=== PATIENT | female | born 1970 | race Caucasian/White ===

== ENCOUNTER 2018-01-28 21:40 | Inpatient (IN) | payer OTHER ==
[2018-01-28] MEDS ORDERED: MORPHINE SULFATE 4 MG/ML SYRINGE IV STA (22:22)
[2018-01-28] MEDS ORDERED: diphenhydrAMINE 50 MG/ML 1 ML VIAL IVP STA (22:22)
[2018-01-28] MEDS ORDERED: ONDANSETRON 4 MG/2 ML VIAL IVP STA (22:22)
[2018-01-28] MEDS ORDERED: SODIUM CHLORIDE 0.9% 2,000 ML IV STA (22:22)
[2018-01-28] MEDS ORDERED: FAMOTIDINE 20 MG/2 ML VIAL IV STA (22:23)
--- NOTE | 2018-01-28 22:26 | ED ---
Abdominal Pain HPI - General Chief Complaint: Abdominal Pain Stated Complaint: abdominal pain Time Seen by Provider: 01/28/18 22:01 Source: patient Mode of arrival: ambulatory Limitations: no limitations - History of Present Illness Initial Comments: Patient is a 48-year-old female presented for abdominal pain. She states that she thinks she has a history of hiatal hernias that this morning, she started having epigastric abdominal pain of physical spasm is been fairly constant. She then started vomiting at 7 AM and has vomited unknown number of times. She also states that she felt like something got stuck in her throat but is not sure if that really happened or not. She is currently here with her sisters and they state that they had some wine last night but not a significant amount of alcohol. - Related Data Home Medications Medication Instructions Recorded Confirmed No Known Home Medications 12/19/15 12/19/15 Allergies Allergy/AdvReac Type Severity Reaction Status Date / Time No Known Allergies Allergy Verified 01/28/18 21:46 Review of Systems ROS Statement: Those systems with pertinent positive or pertinent negative responses have been documented in the HPI. Constitutional: Negative for chills, fatigue and fever. HENT: Negative for congestion. Respiratory: Negative for chest tightness, shortness of breath and wheezing. Negative for cough Cardiovascular: Negative for chest pain and palpitations. Gastrointestinal: Positive for abdominal pain. Negative for abdominal distention , diarrhea, positive for nausea and vomiting. Genitourinary: Negative for dysuria. Musculoskeletal: Negative for back pain, neck pain and neck stiffness. Skin: Negative for color change. Neurological: Negative for dizziness, speech difficulty, weakness and light- headedness. Psychiatric/Behavioral: Negative for agitation and confusion. Negative for anxiety ROS Other: All systems not noted in ROS Statement are negative. Past Medical History Past Medical History: No Reported History History of Any Multi-Drug Resistant Organisms: None Reported Past Surgical History: No Surgical Hx Reported Past Psychological History: Anxiety Smoking Status: Current every day smoker Past Alcohol Use History: Occasional Past Drug Use History: None Reported General Exam - General Exam Comments Initial Comments: Constitutional: Pt is oriented to person, place, and time. Pt appears well- developed and well-nourished. No distress. HENT: Head: Normocephalic and atraumatic. Eyes: EOM are normal. Neck: Normal range of motion. Neck supple. Cardiovascular: Normal rate, regular rhythm, S1 normal, S2 normal and normal heart sounds. Exam reveals no gallop and no friction rub. No murmur heard. Pulmonary/Chest: Effort normal and breath sounds normal. No tachypnea and no bradypnea. No respiratory distress. No wheezes or rales noted. Abdominal: Soft. Bowel sounds are normal. Pt exhibits no shifting dullness, no distension, no pulsatile liver, no fluid wave, no abdominal bruit and no ascites. There is tenderness to the epigastric region. There is no rigidity, no rebound, no guarding, no tenderness at McBurney's point and negative Napier' s sign. Musculoskeletal: Normal range of motion. Neurological: Pt is alert and oriented to person, place, and time. No cranial nerve deficit. Skin: Skin is warm and dry. No rash noted. Pt is not diaphoretic. No erythema. No pallor. Psychiatric: Pt has a normal mood and affect. Pt behavior is normal. Thought content normal. Limitations: no limitations Course Vital Signs 01/28/18 01/28/18 21:43 23:26 Temperature 97.5 F L Pulse Rate 49 L Respiratory 28 H 18 Rate Blood Pressure 145/86 O2 Sat by Pulse 98 Oximetry Medical Decision Making - Medical Decision Making Laboratory studies show that there was leukocytosis 15.3 and other laboratory studies showed that there is transaminitis with AST measured at 571 and ALT 403. Lipase was also measured to be greater than 20,000 and there is no evidence of urinary tract infection in the urinalysis. Because of the severity of the pancreatitis with no preceding events, CT of the abdomen was performed and showed left-sided retroperitoneal fluid consistent with acute pancreatitis and calcified gallstones with no dilated ducts. Because of that, stat ultrasound was not ordered. Patient was also made nothing by mouth and started on continue IV hydration..Explained all labs and diagnostic test results and that we will admit patient to hospital. Pt is agreeable to plan and case has been discussed with Dr. Blood and they agree to accept the pt. - Lab Data Result diagrams: 01/28/18 22:01 01/28/18 22:01 Lab Results 01/28/18 01/28/18 01/28/18 Range/Units 22:01 22:01 23:35 WBC 15.3 H (3.8-10.6) k/uL RBC 4.79 (3.80-5.40) m/uL Hgb 15.1 (11.4-16.0) gm/dL Hct 46.7 H (34.0-46.0) % MCV 97.6 (80.0-100.0) fL MCH 31.6 (25.0-35.0) pg MCHC 32.3 (31.0-37.0) g/dL RDW 12.8 (11.5-15.5) % Plt Count 255 (150-450) k/uL Neutrophils % 83 % Lymphocytes % 12 % Monocytes % 4 % Eosinophils % 1 % Basophils % 0 % Neutrophils # 12.6 H (1.3-7.7) k/uL Lymphocytes # 1.8 (1.0-4.8) k/uL Monocytes # 0.7 (0-1.0) k/uL Eosinophils # 0.1 (0-0.7) k/uL Basophils # 0.0 (0-0.2) k/uL Sodium 138 (137-145) mmol/L Potassium 4.1 (3.5-5.1) mmol/L Chloride 107 (98-107) mmol/L Carbon Dioxide 23 (22-30) mmol/L Anion Gap 8 mmol/L BUN 13 (7-17) mg/dL Creatinine 0.60 (0.52-1.04) mg/dL Est GFR (CKD-EPI)AfAm >90 (>60 ml/min/1.73 sqM) Est GFR (CKD-EPI)NonAf >90 (>60 ml/min/1.73 sqM) Glucose 149 H (74-99) mg/dL Calcium 9.0 (8.4-10.2) mg/dL Magnesium 2.1 (1.6-2.3) mg/dL Total Bilirubin 1.2 (0.2-1.3) mg/dL AST 571 H (14-36) U/L ALT 403 H (9-52) U/L Alkaline Phosphatase 94 (38-126) U/L Total Protein 6.5 (6.3-8.2) g/dL Albumin 3.9 (3.5-5.0) g/dL Lipase >65941 H (23-300) U/L Urine Color Urine Appearance (Clear) Urine pH (5.0-8.0) Ur Specific Peterson (1.001-1.035) Urine Protein (Negative) Urine Glucose (UA) (Negative) Urine Ketones (Negative) Urine Blood (Negative) Urine Nitrite (Negative) Urine Bilirubin (Negative) Urine Urobilinogen (<2.0) mg/dL Ur Leukocyte Esterase (Negative) Urine RBC (0-5) /hpf Urine WBC (0-5) /hpf Ur Squamous Epith Cells (0-4) /hpf Urine Mucus (None) /hpf Urine HCG, Qual Not Detected (Not Detectd) 01/28/18 Range/Units 23:35 WBC (3.8-10.6) k/uL RBC (3.80-5.40) m/uL Hgb (11.4-16.0) gm/dL Hct (34.0-46.0) % MCV (80.0-100.0) fL MCH (25.0-35.0) pg MCHC (31.0-37.0) g/dL RDW (11.5-15.5) % Plt Count (150-450) k/uL Neutrophils % % Lymphocytes % % Monocytes % % Eosinophils % % Basophils % % Neutrophils # (1.3-7.7) k/uL Lymphocytes # (1.0-4.8) k/uL Monocytes # (0-1.0) k/uL Eosinophils # (0-0.7) k/uL Basophils # (0-0.2) k/uL Sodium (137-145) mmol/L Potassium (3.5-5.1) mmol/L Chloride (98-107) mmol/L Carbon Dioxide (22-30) mmol/L Anion Gap mmol/L BUN (7-17) mg/dL Creatinine (0.52-1.04) mg/dL Est GFR (CKD-EPI)AfAm (>60 ml/min/1.73 sqM) Est GFR (CKD-EPI)NonAf (>60 ml/min/1.73 sqM) Glucose (74-99) mg/dL Calcium (8.4-10.2) mg/dL Magnesium (1.6-2.3) mg/dL Total Bilirubin (0.2-1.3) mg/dL AST (14-36) U/L ALT (9-52) U/L Alkaline Phosphatase (38-126) U/L Total Protein (6.3-8.2) g/dL Albumin (3.5-5.0) g/dL Lipase (23-300) U/L Urine Color Yellow Urine Appearance Cloudy H (Clear) Urine pH 5.5 (5.0-8.0) Ur Specific Peterson 1.015 (1.001-1.035) Urine Protein Trace H (Negative) Urine Glucose (UA) Negative (Negative) Urine Ketones Trace H (Negative) Urine Blood Negative (Negative) Urine Nitrite Negative (Negative) Urine Bilirubin Negative (Negative) Urine Urobilinogen <2.0 (<2.0) mg/dL Ur Leukocyte Esterase Small H (Negative) Urine RBC 1 (0-5) /hpf Urine WBC 7 H (0-5) /hpf Ur Squamous Epith Cells 18 H (0-4) /hpf Urine Mucus Rare H (None) /hpf Urine HCG, Qual (Not Detectd) Disposition Clinical Impression: Pancreatitis, Transaminitis Disposition: ADMITTED IP TO THIS [facility] Condition: Fair Referrals: Sharon Martin MD [Primary Care Provider] - 1-2 days Decision to Admit Reason: Admit from EC Decision Date: 01/29/18 Decision Time: 00:42
[2018-01-28 22:37] LABS: Basophils % (A) 0 %; Eosinophils # (A) 0.1 k/uL (0-0.7); Eosinophils % (A) 1 %; HCT 46.7 % (34.0-46.0); HGB 15.1 gm/dL (11.4-16.0); Lymphocytes # (A) 1.8 k/uL (1.0-4.8); Lymphocytes % (A) 12 %; MCH 31.6 pg (25.0-35.0); MCHC 32.3 g/dL (31.0-37.0); MCV 97.6 fL (80.0-100.0); Mean Platelet Volume 7.9; Monocytes # (A) 0.7 k/uL (0-1.0); Monocytes % (A) 4 %; Neutrophils # (A) 12.6 k/uL (1.3-7.7); Neutrophils % (A) 83 %; Platelet Count 255 k/uL (150-450); RBC 4.79 m/uL (3.80-5.40); RDW 12.8 % (11.5-15.5); WBC 15.3 k/uL (3.8-10.6)
[2018-01-28 22:42] LABS: ALT 403 U/L (9-52); AST 571 U/L (14-36); Albumin 3.9 g/dL (3.5-5.0); Alkaline Phosphatase 94 U/L (38-126); Anion Gap 8 mmol/L; Blood Urea Nitrogen 13 mg/dL (7-17); Carbon Dioxide 23 mmol/L (22-30); Chloride 107 mmol/L (98-107); Glucose 149 mg/dL (74-99); Magnesium 2.1 mg/dL (1.6-2.3); Potassium 4.1 mmol/L (3.5-5.1); Sodium 138 mmol/L (137-145); Total Bilirubin 1.2 mg/dL (0.2-1.3); Total Protein 6.5 g/dL (6.3-8.2)
[2018-01-28 23:18] LABS: Lipase >20000 U/L (23-300)
[2018-01-28] MEDS ORDERED: MORPHINE SULFATE 4 MG/ML SYRINGE IVP STA (23:31)
--- NOTE | 2018-01-28 23:33 | XR ---
EXAMINATION TYPE: XR KUB DATE OF EXAM: 01/28/2018 COMPARISON: NONE HISTORY: Vomiting TECHNIQUE: 2 views supine FINDINGS: There is no sign of intestinal obstruction or pneumoperitoneum. Fecal pattern is normal. Th ere are no pathologic calcifications. Bony structures appear intact. IMPRESSION: Nonacute abdomen.
[2018-01-28 23:46] LABS: Appearance,Urine Cloudy (Clear); Bilirubin,Urine Negative (Negative); Blood,Urine Negative (Negative); Color,Urine Yellow; Glucose,Urine (UA) Negative (Negative); Ketones,Urine Trace (Negative); Leukocyte Esterase,Urine Small (Negative); Mucus,Urine Rare /hpf; Nitrite,Urine Negative (Negative); PH, Urine 5.5 (5.0-8.0); Protein,Urine Trace (Negative); RBC,Urine 1 /hpf (0-5); Specific Gravity,Urine 1.015 (1.001-1.035); Squamous Epithelial Cell,Urine 18 /hpf (0-4); Urobilinogen,Urine <2.0 mg/dL (<2.0); WBC,Urine 7 /hpf (0-5)
--- NOTE | 2018-01-29 00:04 | CT ---
EXAMINATION TYPE: CT abdomen pelvis w con DATE OF EXAM: 01/28/2018 COMPARISON: None HISTORY: No prior, vomiting, gen abd pain CT DLP: 1159 mGycm Automated exposure control for dose reduction was used. TECHNIQUE: Helical acquisition of images was performed from the lung bases through the pelvis. CONTRAST: Performed without Oral Contrast and with IV Contrast, patient injected with 100 mL of Isovue 300. FINDINGS: Lung bases are clear of consolidation. There is no pleural effusion. Liver spleen appear normal. Ther e is fluid in the anterior pararenal space on the left side and retroperitoneum around the pancreas. There are small calcified gallstones. The bile ducts are not dilated. I see no discrete pancreatic ma ss. There is no adrenal mass. Kidneys show satisfactory contrast opacification. There is no hydronephrosi s. There is lobulated enlarged uterus consistent with multiple fibroids. Bladder distends smoothly. I see no bony destructive process. There is no compression fracture. There is no ascites. There is no evidence of pneumoperitoneum. There are a few proximal small bowel loops with mild wall thickening.. There are no dilated loops. Appendix is not seen. There is no sign of appendicitis. IMPRESSION: LEFT-SIDED RETROPERITONEAL FLUID CONSISTENT WITH ACUTE PANCREATITIS. CALCIFIED GALLSTONES. NO DILATED DUCTS. Mild proximal small bowel wall thickening suggestive of localized enteritis.
[2018-01-29] MEDS ORDERED: ONDANSETRON 4 MG/2 ML VIAL IVP PRN (00:42)
[2018-01-29] MEDS ORDERED: NALOXONE 0.4 MG/ML 1 ML VIAL IV PRN (00:42)
[2018-01-29] MEDS: SODIUM CHLORIDE 0.9% 1,000 ML IV SCH ×4 (00:48→19:55)
[2018-01-29 01:38] VITALS: BMI 30.7
[2018-01-29] MEDS: MORPHINE SULFATE 4 MG/ML SYRINGE IV PRN ×3 (03:48→12:13)
--- NOTE | 2018-01-29 10:55 | P.HPIM ---
History of Present Illness H&P Date: 01/29/18 Chief Complaint: Pancreatitis This is a 48-year-old female patient of Dr. Martin. Patient presents to the emergency room with complaints of epigastric pain. Patient does states she's been having intermittent epigastric pain for the past 2 years last night was more severe than she has had in the past. Patient states on Monday night she did indulge in multiple mixed alcoholic beverages. Patient also states she has been consuming more greasy foods over the past few days. Does state she has history of stomach ulcers, anxiety and nicotine dependence. With increased epigastric pain patient did experience nausea and vomiting. KUB completed showing a nonacute abdomen. CT of abdomen and pelvis completed showing left- sided retroperitoneal fluid consistent with acute pancreatitis. Class for gallstones. No dilated ducts. Mild proximal small small bowel wall thickening suggestive the localalized enteritis. WBC elevated at 15.3. AST 571, ALT 403 and lipase greater than 20,000. GI services have been consulted. Patient made nothing by mouth. IV fluids initiated. Patient has been receiving morphine for pain control. At this time patient states that morphine has been able to control her pain. Patient does denies nausea or vomiting. Denies any diarrhea. Denies chest pain or shortness of breath. Denies any urinary burning or frequency. Review of Systems Please refer to HPI otherwise unremarkable Past Medical History Past Medical History: No Reported History Additional Past Medical History / Comment(s): stomach ulcers History of Any Multi-Drug Resistant Organisms: None Reported Past Surgical History: Tonsillectomy Past Psychological History: Anxiety Smoking Status: Current every day smoker Past Alcohol Use History: Occasional Past Drug Use History: None Reported Additional Drug Use History / Comment(s): pt smokes half to 1 ppd, drinks socially per pt - Past Family History Mother Family Medical History: No Reported History Medications and Allergies Home Medications Medication Instructions Recorded Confirmed Type No Known Home Medications 12/19/15 12/19/15 History Allergies Allergy/AdvReac Type Severity Reaction Status Date / Time No Known Allergies Allergy Verified 01/28/18 21:46 Physical Exam Vitals: Vital Signs Temp Pulse Pulse Resp BP BP Pulse Ox 01/29/18 09:20 155/75 01/29/18 07:40 98.4 F 69 19 155/93 95 01/29/18 01:21 98.0 F 55 L 16 154/75 96 01/29/18 00:51 55 L 16 189/78 98 01/28/18 23:26 18 01/28/18 21:43 97.5 F L 49 L 28 H 145/86 98 Intake and Output 01/28/18 01/29/18 01/29/18 22:59 06:59 14:59 Other: Weight 83.915 kg 88.8 kg Results CBC & Chem 7: 01/28/18 22:01 01/28/18 22:01 Labs: Abnormal Lab Results - Last 24 Hours (Table) 01/28/18 01/28/18 01/28/18 Range/Units 22:01 22:01 23:35 WBC 15.3 H (3.8-10.6) k/uL Hct 46.7 H (34.0-46.0) % Neutrophils # 12.6 H (1.3-7.7) k/uL Glucose 149 H (74-99) mg/dL AST 571 H (14-36) U/L ALT 403 H (9-52) U/L Lipase >82125 H (23-300) U/L Urine Appearance Cloudy H (Clear) Urine Protein Trace H (Negative) Urine Ketones Trace H (Negative) Ur Leukocyte Esterase Small H (Negative) Urine WBC 7 H (0-5) /hpf Ur Squamous Epith Cells 18 H (0-4) /hpf Urine Mucus Rare H (None) /hpf Thrombosis Risk Factor Assmnt - Choose All That Apply Each Factor Represents 1 point: Age 41-60 years Other Risk Factors: No Other congenital or acquired thrombophilia - If yes, enter type in comment: No Thrombosis Risk Factor Assessment Total Risk Factor Score: 1 Thrombosis Risk Factor Assessment Level: Low Risk Assessment and Plan Assessment: 1. Acute pancreatitis. CT of abdomen and pelvis completed showing left-sided retroperitoneal fluid consistent with acute pancreatitis. Ascites also. No dilated ducts and mild proximal small bowel wall thickening suggestive localized enteritis. GI services have been consulted. WBC 15.3, AST-1, ALT 403 and lipase greater than 20,000. Patient currently nothing by mouth IV fluids initiated at 200 per hour. Morphine for pain control. 2. History of stomach ulcers 3. Nicotine dependence. Patient educated greater than 3 minutes on smoking cessation. Patient declined nicotine patch at this time 4. Anxiety DVT prophylaxis Lovenox. GI prophylaxis Protonix Will repeat labs in a.m. Time with Patient: Greater than 30 (Greater than 60% of the total time spent in counseling and coordination of care. I performed an examination of the patient and discussed their management with the Nurse Practitioner. I have reviewed the Nurse Practitioner's notes and agree with the documented findings and plan of care)
--- NOTE | 2018-01-29 12:55 | CONS ---
CONSULTATION REQUESTING PHYSICIAN: Dr. Garcia REASON FOR CONSULTATION: Acute pancreatitis. HISTORY OF PRESENT ILLNESS: The patient is a 48-year-old pleasant white female who presented to the emergency room with acute onset of severe epigastric pain that started this morning. The pain was progressively getting worse and continued all day associated with multiple episodes of nausea, vomiting. She came into the emergency room and was noted to have elevated amylase and lipase consistent with acute pancreatitis. She had been having intermittent episodes of epigastric pain and was diagnosed with GERD and has been on acid reflux therapy that she takes as needed. She had a CT of the abdomen and pelvis done in the emergency room that showed changes in the pancreas consistent with acute pancreatitis. Scattered gallstones noted. No evidence of dilated duct. The patient also states that she consumes alcohol 2-3 times a week, moderate amount of drinker, 3-4 drinks each time for the last 2 years. No known history of pancreatitis in the past. PAST MEDICAL HISTORY: Significant for gastroesophageal reflux disease diagnosed about 2 years ago. PAST SURGICAL HISTORY: Tonsillectomy. SOCIAL HISTORY: Chronic daily smoker. Alcohol use as mentioned above. FAMILY HISTORY: Mother healthy. Father also healthy. MEDICATIONS: At home medications: None. ALLERGIES: NONE. REVIEW OF SYSTEMS: CARDIOPULMONARY: No chest pain or shortness of breath. GENITOURINARY: No dysuria or hematuria. MUSCULOSKELETAL: Unremarkable. SKIN: Unremarkable. ENDOCRINE: Unremarkable. PSYCHIATRY: Unremarkable. NEUROLOGY: Unremarkable. ENT/VISION: Unremarkable. CONSTITUTIONAL: No recent weight loss. No fever, chills, night sweats. PHYSICAL EXAMINATION: Blood pressure 189/78, pulse rate 75, temperature 98. HEENT examination unremarkable. Conjunctivae pink. Sclerae anicteric. Oral cavity, no lesions. NECK: No JVD or lymph node enlargement. Chest was clear to auscultation. HEART: Regular rate and rhythm. Abdomen is soft. Mild tenderness in the epigastric area. Bowel sounds are positive. No organomegaly. EXTREMITIES: No pedal edema. SKIN: No rashes. NEUROLOGIC: Alert and oriented x3. No focal deficits. LAB DATA: WBC 15.3, hemoglobin 15.1, platelets are normal. Basic metabolic panel is within normal limits. Lipase is more than 20,000. AST 571, ALT 403, alkaline phosphatase and T-bili are within normal limits. IMPRESSION: This is a lady who presents to the hospital with acute onset of severe epigastric pain associated with nausea and vomiting that started yesterday morning and continued to progressively get worse all day. Came to the emergency room last night, noted to have elevated LFTs with ALT and AST in the range of 500 and lipase more than 20,000 all consistent with acute biliary pancreatitis. She did have a CT of the abdomen done that showed evidence of multiple calcified gallstones but no biliary ductal dilation and changes consistent with acute pancreatitis. The patient does have history of moderate amount of drinking, but I doubt we are dealing with alcoholic related pancreatitis. RECOMMENDATIONS: 1. Symptomatic and supportive care. 2. Antiemetics as needed. 3. Surgical consultation for possible gallbladder surgery during this hospitalization. 4. Her serum transaminases are slightly elevated, which raises the possibility of choledocholithiasis. However, we will repeat labs in the morning and if they get worse we will consider further evaluation with possible MRCP to rule out CBD stone. 5. Recommended to abstain from alcohol. Thank you for this consultation. We will follow with you closely during the hospital stay. JT / PRABHU: [id number] /
--- NOTE | 2018-01-29 17:30 | P.GSCN ---
History of Present Illness Consult date: 01/29/18 History of present illness: CHIEF COMPLAINT: Abdominal pain HISTORY OF PRESENT ILLNESS: The patient is a 48-year-old female who reported having substernal epigastric abdominal pain following a food binge of fatty greasy foods and drinking alcohol over the holidays, in the last 2 days. She reports a strong family history of gallbladder disease where her mother also had her gallbladder removed. Patient reports having similar episode in the past one year ago and for the last 3 years after similar behavior of eating fatty foods. She's had previous ultrasounds of the gallbladder which she says was negative for gallstones. She presented with a lipase of over 20,000. CT of the abdomen and pelvis demonstrated gallstones. Gen. surgery is consulted regarding gallstone-induced pancreatitis. PAST MEDICAL HISTORY: See list. PAST SURGICAL HISTORY: See list. MEDICATIONS: See list. ALLERGIES: See list. SOCIAL HISTORY: No illicit drug use FAMILY HISTORY: No reports of Crohn's disease or inflammatory bowel disease. Family history of gallbladder disorder. REVIEW OF ORGAN SYSTEMS: CONSTITUTIONAL: No fevers or chills HEENT: No troubles with vision or hearing. No reports of dysphagia. ENDOCRINE: No reports of thyroid disorders. No diabetes. CARDIOVASCULAR: No heart attack. No chest pain. RESPIRATORY: No shortness of breath or pneumonia. GASTROINTESTINAL: No reports of recent blood in stools. Has intolerance to fatty greasy foods. NEURO: No reports of stroke or seizure disorders. PSYCH: No depression or suicidal ideation. Has anxiety. HEMATOLOGIC: No easy bruising or bleeding LYMPHATIC: The patient denies any lumps and bumps around the neck. GENITOURINARY: Denies any blood in urine or increased urinary frequency. MUSCULOSKELETAL: Denies back pain, stiffness or joint arthritis. SKIN: No skin cancer or rash per PHYSICAL EXAM: VITAL SIGNS: Currently stable. GENERAL: Well-developed in no acute distress. HEENT: No sclera icterus. Extraocular movements grossly intact. Moist buccal mucosa. Head is atraumatic, normocephalic. Hears conversational speech. No nasal drainage. NECK: Supple without lymphadenopathy. CHEST: Non-labored respirations and equal bilateral excursions. CARDIOVASCULAR: Regular rate with regular rhythm. Palpable 2+ radial pulses. ABDOMEN: Soft. Tender along the epigastrium. No peritonitis. MUSCULOSKELETAL: No clubbing, cyanosis or edema. NEUROLOGIC: No focal or lateralizing signs. Cranial nerves II through XII grossly intact. PSYCH: Appropriate affect. Alert and oriented to person, place and time. SKIN: Well perfused. Good skin turgor. LABS: Reviewed ASSESSMENT: 1. Gallstone-induced pancreatitis PLAN: 1. Inpatient cholecystectomy as described however once pancreatitis has improved. 2. May start liquid diet tomorrow as pancreatitis and abdominal pain improves. In the interim nothing by mouth except ice chips. 3. Likely hospitalization described at least 3-4 days including for inpatient cholecystectomy. Thank you for this kind consultation. Past Medical History Past Medical History: No Reported History Additional Past Medical History / Comment(s): stomach ulcers History of Any Multi-Drug Resistant Organisms: None Reported Past Surgical History: Tonsillectomy Past Psychological History: Anxiety Smoking Status: Current every day smoker Past Alcohol Use History: Occasional Past Drug Use History: None Reported Additional Drug Use History / Comment(s): pt smokes half to 1 ppd, drinks socially per pt - Past Family History Mother Family Medical History: No Reported History Medications and Allergies Home Medications Medication Instructions Recorded Confirmed Type No Known Home Medications 12/19/15 01/29/18 History Allergies Allergy/AdvReac Type Severity Reaction Status Date / Time No Known Allergies Allergy Verified 01/29/18 11:39 Surgical - Exam Vital Signs Temp Pulse Resp BP Pulse Ox 97.5 F L 49 L 28 H 145/86 98 01/28/18 21:43 01/28/18 21:43 01/28/18 21:43 01/28/18 21:43 01/28/18 21:43 Results - Labs 01/28/18 22:01 01/28/18 22:01 Abnormal Lab Results - Last 24 Hours (Table) 01/28/18 01/28/18 01/28/18 Range/Units 22:01 22:01 23:35 WBC 15.3 H (3.8-10.6) k/uL Hct 46.7 H (34.0-46.0) % Neutrophils # 12.6 H (1.3-7.7) k/uL Glucose 149 H (74-99) mg/dL AST 571 H (14-36) U/L ALT 403 H (9-52) U/L Lipase >12033 H (23-300) U/L Urine Appearance Cloudy H (Clear) Urine Protein Trace H (Negative) Urine Ketones Trace H (Negative) Ur Leukocyte Esterase Small H (Negative) Urine WBC 7 H (0-5) /hpf Ur Squamous Epith Cells 18 H (0-4) /hpf Urine Mucus Rare H (None) /hpf Diabetes panel 01/28/18 Range/Units 22:01 Sodium 138 (137-145) mmol/L Potassium 4.1 (3.5-5.1) mmol/L Chloride 107 (98-107) mmol/L Carbon Dioxide 23 (22-30) mmol/L BUN 13 (7-17) mg/dL Creatinine 0.60 (0.52-1.04) mg/dL Glucose 149 H (74-99) mg/dL Calcium 9.0 (8.4-10.2) mg/dL AST 571 H (14-36) U/L ALT 403 H (9-52) U/L Alkaline Phosphatase 94 (38-126) U/L Total Protein 6.5 (6.3-8.2) g/dL Albumin 3.9 (3.5-5.0) g/dL Calcium panel 01/28/18 Range/Units 22:01 Calcium 9.0 (8.4-10.2) mg/dL Albumin 3.9 (3.5-5.0) g/dL Pituitary panel 01/28/18 Range/Units 22:01 Sodium 138 (137-145) mmol/L Potassium 4.1 (3.5-5.1) mmol/L Chloride 107 (98-107) mmol/L Carbon Dioxide 23 (22-30) mmol/L BUN 13 (7-17) mg/dL Creatinine 0.60 (0.52-1.04) mg/dL Glucose 149 H (74-99) mg/dL Calcium 9.0 (8.4-10.2) mg/dL Adrenal panel 01/28/18 Range/Units 22:01 Sodium 138 (137-145) mmol/L Potassium 4.1 (3.5-5.1) mmol/L Chloride 107 (98-107) mmol/L Carbon Dioxide 23 (22-30) mmol/L BUN 13 (7-17) mg/dL Creatinine 0.60 (0.52-1.04) mg/dL Glucose 149 H (74-99) mg/dL Calcium 9.0 (8.4-10.2) mg/dL Total Bilirubin 1.2 (0.2-1.3) mg/dL AST 571 H (14-36) U/L ALT 403 H (9-52) U/L Alkaline Phosphatase 94 (38-126) U/L Total Protein 6.5 (6.3-8.2) g/dL Albumin 3.9 (3.5-5.0) g/dL - Imaging CT scan - abdomen: report reviewed, image reviewed CT scan - pelvis: report reviewed, image reviewed (Findings demonstrate gallstones.) Assessment and Plan (1) Acute gallstone pancreatitis Current Visit: Yes Status: Acute Code(s): K85.10 - BILIARY ACUTE PANCREATITIS WITHOUT NECROSIS OR INFECTION SNOMED Code(s): 339750668 (2) Obesity (BMI 30.0-34.9) Current Visit: Yes Status: Acute Code(s): E66.9 - OBESITY, UNSPECIFIED SNOMED Code(s): 007461436 (3) Tobacco abuse Current Visit: Yes Status: Acute Code(s): Z72.0 - TOBACCO USE SNOMED Code( s): 327199970 (4) Pancreatitis Current Visit: Yes Status: Acute Code(s): K85.90 - ACUTE PANCREATITIS WITHOUT NECROSIS OR INFECTION, UNSP SNOMED Code(s): 14679223 (5) Transaminitis Current Visit: Yes Status: Acute Code(s): R74.0 - NONSPEC ELEV OF LEVELS OF TRANSAMNS & LACTIC ACID DEHYDRGNSE SNOMED Code(s): 820849020 (6) Anxiety Current Visit: No Status: Acute Code(s): F41.9 - ANXIETY DISORDER, UNSPECIFIED SNOMED Code(s): 56347352
[2018-01-30] MEDS: SODIUM CHLORIDE 0.9% 1,000 ML IV SCH ×4 (00:25→16:15)
[2018-01-30] MEDS ORDERED: PANTOPRAZOLE 40 MG TABLET PO SCH (07:30)
[2018-01-30] MEDS: ENOXAPARIN 40 MG/0.4 ML SYRINGE SQ SCH ×2 (08:23→08:27)
[2018-01-30] MEDS: PANTOPRAZOLE 40 MG/10 ML VIAL IVP SCH ×2 (08:23→08:25)
[2018-01-30 08:36] LABS: Basophils % (A) 0 %; Eosinophils # (A) 0.1 k/uL (0-0.7); Eosinophils % (A) 1 %; HCT 41.1 % (34.0-46.0); HGB 13.1 gm/dL (11.4-16.0); Lymphocytes # (A) 1.5 k/uL (1.0-4.8); Lymphocytes % (A) 18 %; MCH 31.4 pg (25.0-35.0); MCHC 31.8 g/dL (31.0-37.0); MCV 98.8 fL (80.0-100.0); Mean Platelet Volume 7.5; Monocytes # (A) 0.4 k/uL (0-1.0); Monocytes % (A) 4 %; Neutrophils # (A) 6.5 k/uL (1.3-7.7); Neutrophils % (A) 76 %; Platelet Count 182 k/uL (150-450); RBC 4.16 m/uL (3.80-5.40); RDW 12.7 % (11.5-15.5); WBC 8.6 k/uL (3.8-10.6)
[2018-01-30 08:37] LABS: ALT 186 U/L (9-52); AST 53 U/L (14-36); Alkaline Phosphatase 60 U/L (38-126); Amylase 104 U/L (30-110); Anion Gap 6 mmol/L; Blood Urea Nitrogen 4 mg/dL (7-17); Calcium 7.5 mg/dL (8.4-10.2); Carbon Dioxide 22 mmol/L (22-30); Chloride 109 mmol/L (98-107); Glucose 88 mg/dL (74-99); Lipase 579 U/L (23-300); Potassium 3.7 mmol/L (3.5-5.1); Sodium 137 mmol/L (137-145); Total Bilirubin 0.6 mg/dL (0.2-1.3); Total Protein 5.4 g/dL (6.3-8.2)
--- NOTE | 2018-01-30 11:52 | P.PN ---
Subjective Progress Note Date: 01/30/18 Principal diagnosis: pancreatitis 48-year-old female admitted with acute pancreatitis abdominal pain. Pancreatic and liver enzymes improved today lipase 579. Amylase 104. AST 53. ALT 186. Alkaline phosphatase total bilirubin normal. Denies abdominal pain. Requesting diet advancement. Tentative surgery cholecystectomy scheduled tomorrow. Afebrile. White count 8.6. Objective - Vital Signs Vital signs: Vital Signs Temp 97.9 F 01/30/18 07:00 Pulse 70 01/30/18 07:00 Resp 18 01/30/18 07:00 BP 139/83 01/30/18 07:00 Pulse Ox 97 01/30/18 07:00 Intake & Output 01/29/18 01/30/18 01/30/18 18:59 06:59 18:59 Output Total 400 2300 Balance -400 -2300 Output: Urine 400 2300 Other: # Voids 1 1 - Exam General appearance: The patient is alert, oriented, in no acute distress. HET: Head is normocephalic and atraumatic. Pupils are equal and reactive. Oropharynx is clear without lesions. Neck: Supple without lymphadenopathy. Trachea midline. Heart: S1 S2. Regular rate and rhythm. Lungs: No crackles or wheezes are heard. Abdomen: Soft, nontender, nondistended with bowel sounds. No peritoneal signs. No palpable organomegaly or masses. Extremities: Normal skin color and turgor. No cyanosis, rash, ulceration, clubbing, or edema. Radial and pedal pulses are 2/4 bilaterally. Neurological: No focal deficits. Strength and sensation are grossly intact. - Labs CBC & Chem 7: 01/30/18 08:08 01/30/18 08:08 Labs: Abnormal Lab Results - Last 24 Hours (Table) 01/30/18 Range/Units 08:08 Chloride 109 H (98-107) mmol/L BUN 4 L (7-17) mg/dL Calcium 7.5 L (8.4-10.2) mg/dL AST 53 H (14-36) U/L ALT 186 H (9-52) U/L Total Protein 5.4 L (6.3-8.2) g/dL Albumin 3.0 L (3.5-5.0) g/dL Lipase 579 H (23-300) U/L Assessment and Plan (1) Acute gallstone pancreatitis Narrative/Plan: Transaminases improving choledocholithiasis felt to be less likely. Current Visit: Yes Status: Acute Code(s): K85.10 - BILIARY ACUTE PANCREATITIS WITHOUT NECROSIS OR INFECTION SNOMED Code(s): 151441691 (2) ETOH abuse Current Visit: Yes Status: Acute Code(s): F10.10 - ALCOHOL ABUSE, UNCOMPLICATED SNOMED Code(s): 98752392 Plan: 1. Clear liquids. Nothing by mouth after midnight. Nicotine patch offered. No further workup from a GI standpoint. Alcohol tobacco abstinence reinstated. We'll defer to general surgery for further recommendations. Will follow as needed. Assessment and plan of care discussed with Dr. Kaplan
--- NOTE | 2018-01-30 12:35 | P.PN ---
Subjective Progress Note Date: 01/30/18 This is a 48-year-old female patient of Dr. Martin. Patient presents to the emergency room with complaints of epigastric pain. Patient does states she's been having intermittent epigastric pain for the past 2 years last night was more severe than she has had in the past. Patient states on Monday night she did indulge in multiple mixed alcoholic beverages. Patient also states she has been consuming more greasy foods over the past few days. Does state she has history of stomach ulcers, anxiety and nicotine dependence. With increased epigastric pain patient did experience nausea and vomiting. KUB completed showing a nonacute abdomen. CT of abdomen and pelvis completed showing left- sided retroperitoneal fluid consistent with acute pancreatitis. Class for gallstones. No dilated ducts. Mild proximal small small bowel wall thickening suggestive the localalized enteritis. WBC elevated at 15.3. AST 571, ALT 403 and lipase greater than 20,000. GI services have been consulted. Patient made nothing by mouth. IV fluids initiated. Patient has been receiving morphine for pain control. At this time patient states that morphine has been able to control her pain. Patient does denies nausea or vomiting. Denies any diarrhea. Denies chest pain or shortness of breath. Denies any urinary burning or frequency. On 01/30/2018 patient is currently up walking around room. Patient is alert and oriented 3. Patient states she feels much improved. Patient has not required IV pain medication throughout morning. Surgical services are consulted. Possible gallbladder removal today or tomorrow per surgical. At this time patient denies chest pain or shortness of breath. Patient denies nausea vomiting or diarrhea. Patient denies any urinary burning or frequency. Objective - Vital Signs Vital signs: Vital Signs Temp 97.9 F 01/30/18 07:00 Pulse 70 01/30/18 07:00 Resp 18 01/30/18 07:00 BP 139/83 01/30/18 07:00 Pulse Ox 97 01/30/18 07:00 Intake & Output 01/29/18 01/30/18 01/30/18 18:59 06:59 18:59 Output Total 400 2300 Balance -400 -2300 Output: Urine 400 2300 Other: # Voids 1 1 - Exam Head normocephalic Neck supple Lungs clear to auscultation bilaterally no wheezing or crackles Heart regular rate and rhythm S1-S2, no rub or gallop Abdomen is soft nontender nondistended positive bowel sounds no hepatosplenomegaly Extremities no edema Neuro alert and orientated to 3 - Labs CBC & Chem 7: 01/30/18 08:08 01/30/18 08:08 Labs: Abnormal Lab Results - Last 24 Hours (Table) 01/30/18 Range/Units 08:08 Chloride 109 H (98-107) mmol/L BUN 4 L (7-17) mg/dL Calcium 7.5 L (8.4-10.2) mg/dL AST 53 H (14-36) U/L ALT 186 H (9-52) U/L Total Protein 5.4 L (6.3-8.2) g/dL Albumin 3.0 L (3.5-5.0) g/dL Lipase 579 H (23-300) U/L Assessment and Plan Assessment: 1. Acute pancreatitis. CT of abdomen and pelvis completed showing left-sided retroperitoneal fluid consistent with acute pancreatitis. Ascites also. No dilated ducts and mild proximal small bowel wall thickening suggestive localized enteritis. GI services have been consulted. WBC 15.3, AST-1, ALT 403 and lipase greater than 20,000. Patient currently nothing by mouth IV fluids initiated at 200 per hour. Morphine for pain control. General surgery consulted in regards to gallstone induced pancreatitis. Labs are improving. AST 53, ALT 186, amylase 104 and lipase 579. Patient has been started on clear liquids and will be nothing by mouth after midnight for possible gallbladder removal surgery tomorrow. 2. History of stomach ulcers 3. Nicotine dependence. Patient educated greater than 3 minutes on smoking cessation. Patient declined nicotine patch at this time 4. Anxiety 5. Gallstoneinduced pancreatitis. Surgical services are following planning for inpatient cholecystectomy once pancreatitiss has improved. Possible surgery today or tomorrow DVT prophylaxis Lovenox. GI prophylaxis Protonix I performed an examination of the patient and discussed their management with the Nurse Practitioner. I have reviewed the Nurse Practitioner's notes and agree with the documented findings and plan of care
[2018-01-30] MEDS: NICOTINE 14MG/24HR PATCH TRANSDERM SCH (12:43)
--- NOTE | 2018-01-30 20:27 | P.PN ---
Subjective Progress Note Date: 01/30/18 The patient is a 48-year-old female admitted for gallstone-induced pancreatitis. Abdominal pain is resolved. Objective - Vital Signs Vital signs: Vital Signs Temp 98.1 F 01/30/18 15:27 Pulse 69 01/30/18 15:27 Resp 16 01/30/18 15:27 BP 131/85 01/30/18 15:27 Pulse Ox 98 01/30/18 15:27 Intake & Output 01/30/18 01/30/18 01/31/18 06:59 18:59 06:59 Output Total 2300 Balance -2300 Output: Urine 2300 Other: # Voids 1 1 - Exam GENERAL: Well developed and in no acute distress. Pleasant. HEENT: No sclera icterus. Extraocular movements grossly intact. Moist buccal mucosa. Head is atraumatic, normocephalic. Hears conversational speech. No nasal drainage. NECK: Supple without lymphadenopathy. No JV distention. CHEST: Non-labored respirations and equal bilateral excursions. CARDIOVASCULAR: Regular rate and rhythm. Palpable 2+ radial pulses. ABDOMEN: Soft. Nondistended. Mild tenderness epigastrium MUSCULOSKELETAL: No clubbing, cyanosis or edema. NEUROLOGIC: No focal or lateralizing signs. Cranial nerves II-12 grossly intact PSYCH: Appropriate affect. Alert and oriented to person, place and time. SKIN: Good skin turgor. Well perfused. - Labs CBC & Chem 7: 01/30/18 08:08 01/30/18 08:08 Labs: Abnormal Lab Results - Last 24 Hours (Table) 01/30/18 Range/Units 08:08 Chloride 109 H (98-107) mmol/L BUN 4 L (7-17) mg/dL Calcium 7.5 L (8.4-10.2) mg/dL AST 53 H (14-36) U/L ALT 186 H (9-52) U/L Total Protein 5.4 L (6.3-8.2) g/dL Albumin 3.0 L (3.5-5.0) g/dL Lipase 579 H (23-300) U/L Microbiology - Last 24 Hours (Table) 01/30/18 09:30 Urine Culture - Preliminary Urine,Clean Catch Assessment and Plan (1) Acute gallstone pancreatitis Current Visit: Yes Status: Acute Code(s): K85.10 - BILIARY ACUTE PANCREATITIS WITHOUT NECROSIS OR INFECTION SNOMED Code(s): 641252958 (2) Obesity (BMI 30.0-34.9) Current Visit: Yes Status: Acute Code(s): E66.9 - OBESITY, UNSPECIFIED SNOMED Code(s): 772592275 (3) Tobacco abuse Current Visit: Yes Status: Acute Code(s): Z72.0 - TOBACCO USE SNOMED Code( s): 136505861 (4) Pancreatitis Current Visit: Yes Status: Acute Code(s): K85.90 - ACUTE PANCREATITIS WITHOUT NECROSIS OR INFECTION, UNSP SNOMED Code(s): 50861842 (5) Transaminitis Current Visit: Yes Status: Acute Code(s): R74.0 - NONSPEC ELEV OF LEVELS OF TRANSAMNS & LACTIC ACID DEHYDRGNSE SNOMED Code(s): 809641966 (6) Anxiety Current Visit: No Status: Inactive Code(s): F41.9 - ANXIETY DISORDER, UNSPECIFIED SNOMED Code(s): 48037189 Plan: 1. She is scheduled for cholecystectomy tomorrow as lipase has near normalized. 2. May have liquids in the morning nothing by mouth after breakfast 3. DVT prophylaxis.
[2018-01-31] MEDS: SODIUM CHLORIDE 0.9% 1,000 ML IV SCH ×4 (05:43→20:56)
[2018-01-31 07:35] LABS: Basophils % (A) 0 %; Eosinophils # (A) 0.1 k/uL (0-0.7); Eosinophils % (A) 2 %; HCT 41.5 % (34.0-46.0); HGB 13.5 gm/dL (11.4-16.0); Lymphocytes # (A) 2.1 k/uL (1.0-4.8); Lymphocytes % (A) 25 %; MCH 31.9 pg (25.0-35.0); MCHC 32.5 g/dL (31.0-37.0); MCV 98.1 fL (80.0-100.0); Mean Platelet Volume 7.7; Monocytes # (A) 0.3 k/uL (0-1.0); Monocytes % (A) 4 %; Neutrophils # (A) 5.6 k/uL (1.3-7.7); Neutrophils % (A) 68 %; Platelet Count 210 k/uL (150-450); RBC 4.23 m/uL (3.80-5.40); RDW 12.8 % (11.5-15.5); WBC 8.3 k/uL (3.8-10.6)
[2018-01-31 07:56] LABS: ALT 138 U/L (9-52); AST 29 U/L (14-36); Albumin 3.4 g/dL (3.5-5.0); Alkaline Phosphatase 59 U/L (38-126); Anion Gap 8 mmol/L; Blood Urea Nitrogen 3 mg/dL (7-17); Calcium 8.1 mg/dL (8.4-10.2); Carbon Dioxide 21 mmol/L (22-30); Chloride 111 mmol/L (98-107); Glucose 98 mg/dL (74-99); Potassium 4.2 mmol/L (3.5-5.1); Sodium 140 mmol/L (137-145); Total Bilirubin 0.6 mg/dL (0.2-1.3)
[2018-01-31] MEDS: PANTOPRAZOLE 40 MG/10 ML VIAL IVP SCH (08:00)
[2018-01-31] MEDS: ENOXAPARIN 40 MG/0.4 ML SYRINGE SQ SCH (08:00)
[2018-01-31] MEDS: NICOTINE 14MG/24HR PATCH TRANSDERM SCH (08:00)
--- NOTE | 2018-01-31 12:06 | P.HPADDEND ---
H&P Addendum H&P Addendum Date: 01/31/18 Benefits and risks of surgery described. We'll pursue robotic cholecystectomy. Pancreatic enzymes normal
--- NOTE | 2018-01-31 12:55 | P.PN ---
Subjective Progress Note Date: 01/31/18 This is a 48-year-old female patient of Dr. Martin. Patient presents to the emergency room with complaints of epigastric pain. Patient does states she's been having intermittent epigastric pain for the past 2 years last night was more severe than she has had in the past. Patient states on Monday night she did indulge in multiple mixed alcoholic beverages. Patient also states she has been consuming more greasy foods over the past few days. Does state she has history of stomach ulcers, anxiety and nicotine dependence. With increased epigastric pain patient did experience nausea and vomiting. KUB completed showing a nonacute abdomen. CT of abdomen and pelvis completed showing left- sided retroperitoneal fluid consistent with acute pancreatitis. Class for gallstones. No dilated ducts. Mild proximal small small bowel wall thickening suggestive the localalized enteritis. WBC elevated at 15.3. AST 571, ALT 403 and lipase greater than 20,000. GI services have been consulted. Patient made nothing by mouth. IV fluids initiated. Patient has been receiving morphine for pain control. At this time patient states that morphine has been able to control her pain. Patient does denies nausea or vomiting. Denies any diarrhea. Denies chest pain or shortness of breath. Denies any urinary burning or frequency. On 01/30/2018 patient is currently up walking around room. Patient is alert and oriented 3. Patient states she feels much improved. Patient has not required IV pain medication throughout morning. Surgical services are consulted. Possible gallbladder removal today or tomorrow per surgical. At this time patient denies chest pain or shortness of breath. Patient denies nausea vomiting or diarrhea. Patient denies any urinary burning or frequency. On 01/31/2018 patient is currently alert and oriented 3. Patient states she feels much improved. Planning for cholecystectomy today at 4:[address] Rios. Patient denies nausea or vomiting. Patient denies chest pain or shortness of breath. Patient denies any urinary burning or frequency. Patient states she has been tolerating a clear liquid diet but is currently nothing by mouth now for surgery Objective - Vital Signs Vital signs: Vital Signs Temp 98.2 F 01/31/18 07:30 Pulse 73 01/31/18 07:30 Resp 18 01/31/18 07:30 BP 129/85 01/31/18 07:30 Pulse Ox 97 01/31/18 07:30 Intake & Output 01/30/18 01/31/18 01/31/18 18:59 06:59 18:59 Intake Total 780 Output Total 700 Balance 80 Intake: Oral 780 Output: Urine 700 Other: # Voids 1 1 - Exam Head normocephalic Neck supple Lungs clear to auscultation bilaterally no wheezing or crackles Heart regular rate and rhythm S1-S2, no rub or gallop Abdomen is soft nontender nondistended positive bowel sounds no hepatosplenomegaly Extremities no edema Neuro alert and orientated to 3 - Labs CBC & Chem 7: 01/31/18 07:25 01/31/18 07:25 Labs: Abnormal Lab Results - Last 24 Hours (Table) 01/31/18 Range/Units 07:25 Chloride 111 H (98-107) mmol/L Carbon Dioxide 21 L (22-30) mmol/L BUN 3 L (7-17) mg/dL Calcium 8.1 L (8.4-10.2) mg/dL ALT 138 H (9-52) U/L Total Protein 6.0 L (6.3-8.2) g/dL Albumin 3.4 L (3.5-5.0) g/dL Microbiology - Last 24 Hours (Table) 01/30/18 09:30 Urine Culture - Preliminary Urine,Clean Catch Assessment and Plan Assessment: 1. Acute pancreatitis. CT of abdomen and pelvis completed showing left-sided retroperitoneal fluid consistent with acute pancreatitis. Ascites also. No dilated ducts and mild proximal small bowel wall thickening suggestive localized enteritis. GI services have been consulted. WBC 15.3, AST-1, ALT 403 and lipase greater than 20,000. Patient currently nothing by mouth IV fluids initiated at 200 per hour. Morphine for pain control. General surgery consulted in regards to gallstone induced pancreatitis. Labs are improving. AST 53, ALT 186, amylase 104 and lipase 579. Patient has been started on clear liquids and will be nothing by mouth after midnight for possible gallbladder removal surgery tomorrow. AST improving to 29, ALT 138, and lipase 143. Cholecystectomy surgery planned for today at 4:[address] Rios. 2. History of stomach ulcers 3. Nicotine dependence. Patient educated greater than 3 minutes on smoking cessation. Patient declined nicotine patch at this time 4. Anxiety 5. Gallstoneinduced pancreatitis. Surgical services are following planning for inpatient cholecystectomy once pancreatitiss has improved. Possible surgery today or tomorrow DVT prophylaxis Lovenox. GI prophylaxis Protonix I performed an examination of the patient and discussed their management with the Nurse Practitioner. I have reviewed the Nurse Practitioner's notes and agree with the documented findings and plan of care
[2018-01-31] MEDS ORDERED: IV FLUID CONTINUATION 1,000 ML IV ONE (16:09)
[2018-01-31] MEDS ORDERED: LACTATED RINGERS 1,000 ML IV ONE (17:11)
[2018-01-31] MEDS ORDERED: HEPARIN SODIUM,PORCINE 5,000 UNIT/ML 1 ML VIAL SQ STA (17:20)
[2018-01-31] MEDS ORDERED: INDOCYANINE GREEN 25 MG VIAL IV STA (17:22)
[2018-01-31] MEDS ORDERED: DEXAMETHASONE SOD PHOS (MDV) 100 MG/10 ML VIAL ONE (17:23)
[2018-01-31] MEDS ORDERED: PROPOFOL 10 MG/ML 20 ML VIAL IV ONE (17:23)
[2018-01-31] MEDS ORDERED: GLYCOPYRROLATE 0.2 MG/ML 2 ML VIAL ONE (17:23)
[2018-01-31] MEDS ORDERED: KETOROLAC 30 MG/ML 1 ML VIAL ONE (17:23)
[2018-01-31] MEDS ORDERED: fentaNYL (PF) 50 MCG/ML 2 ML AMP ONE (17:23)
[2018-01-31] MEDS ORDERED: LIDOCAINE 1% INJ 10MG/ML (20 ML MDV) ONE (17:23)
[2018-01-31] MEDS ORDERED: SUCCINYLCHOLINE CHLORIDE 100 MG/5 ML SYR IV ONE (17:23)
[2018-01-31] MEDS ORDERED: NEOSTIGMINE 1 MG/ML 10 ML VIAL ONE (17:23)
[2018-01-31] MEDS ORDERED: ROCURONIUM BROMIDE 10 MG/ML 10 ML VIAL IV ONE (17:23)
[2018-01-31] MEDS ORDERED: MIDAZOLAM 2 MG/2 ML VIAL ONE (17:23)
[2018-01-31] MEDS ORDERED: SODIUM CHLORIDE 0.9% 50 ML with ceFAZolin 2,000 MG IV ONE ×2 (17:25)
[2018-01-31] MEDS ORDERED: BUPIVACAIN-EPI 0.25%-1:200,000 30 ML VIAL SQ ONE (17:48)
[2018-01-31] MEDS ORDERED: HYDROcodone/APAP 5-325MG 1 EACH TAB PO PRN (18:34)
--- NOTE | 2018-01-31 18:34 | P.OP ---
Date of Procedure: 01/31/18 Description of Procedure: SURGEON: CHRISTEN HERNANDEZ MD PREOPERATIVE DIAGNOSES: 1. Gallstone pancreatitis 2. Obesity, BMI 30.7 3. Tobacco abuse POSTOPERATIVE DIAGNOSES: 1. Gallstone pancreatitis 2. Obesity, BMI 30.7 3. Tobacco abuse 4. Acute cholecystitis OPERATION: Robotic-assisted da Tyler Xi laparoscopic cholecystectomy, multiport with FIREFLY ESTIMATED BLOOD LOSS: 5 mL. SPECIMENS REMOVED: Gallbladder. COMPLICATIONS: None. OPERATIVE FINDINGS: 1. Acute cholecystitis INDICATIONS: The patient is a 48-year-old female who presents with gallstone- induced pancreatitis with cholecystitis. Surgical intervention with a laparoscopic cholecystectomy was described at length including injury to the biliary tree, bleeding, infection, need for further surgery. Informed consent was obtained. Robotic assisted laparoscopic approach was described. Benefits and risks of the procedure including but not limited to bleeding, infection, injury to the biliary tree was described. Informed consent was obtained. DESCRIPTION OF PROCEDURE: Patient was brought to the operating room, placed in supine position. After general induction, the abdomen had been prepped and draped in standard sterile fashion. The robotic da Tyler XI system was primed. After a timeout protocol was performed, the patient had been prepped and draped in standard sterile fashion. The patient was injected with indocyanine green. A 5 mm 0 degrees laparoscopic trocar entry was performed along the left upper quadrant. The abdomen insufflated to 15 mmHg pressure which she tolerated well. Diagnostic laparoscopy demonstrated no injury to bowel viscera or mesentery. The liver surface was unremarkable. Next, two 8 mm robotic ports were placed along the right upper abdomen. The camera 8-mm port was maintained along the epigastrium. Another 8 mm port was placed along the left upper abdominal wall after exchanging the 5 mm port. Please note that the ports were placed at least 10 to 15 cm away from the target anatomy of the gallbladder. The robot was docked along the left lateral abdomen. The patient was repositioned in reverse Trendelenburg position. Using a grasper for arm 3, a grasper for arm 4, including hook cautery for arm 1 , the robotic system was docked and primed as described. Instruments were interchanged by the head start assistant teacher including hook cautery, Bovie cautery and clip appliers. I had sat at the console. Adhesions were identified along the infundibulum of the gallbladder and addressed using hook cautery. The gallbladder fundus was retracted over the dome of the liver. Initial attention was brought to the infundibulum which was gently retracted in the inferior lateral approach. Using a grasper, the cystic duct including the cystic artery was carefully skeletonized. FIREFLY was used to identify the cystic artery and cystic structures. Large PLASTIC clips were used throughout the entire case. Using a clip transverse abdominal muscle surgeon 2 clips were placed proximally, and 1 clip was placed distally along the cystic duct and then cauterized with the cautery. Again care was taken to avoid any injury to the biliary tree as the common bile duct was clearly visualized during this portion of dissection. Next, the cystic artery was similarly clipped and cauterized. Electro-Bovie cautery was used to remove the gallbladder from the hepatic fossa. Hemostasis was checked and found to be adequate. The robot was undocked. I re-scrubbed into the case. Using a 10 mm Endo Catch bag via the left upper quadrant incision, the specimen was removed from the abdominal cavity. All pneumoperitoneum instruments were evacuated from the abdominal cavity. The incisions were reapproximated using 4-0 Monocryl in an interrupted subcuticular fashion. Fascial defects were less than 8 mm in size. Please note along the trocar sites, local anesthetic was placed as a field block prior to insertion of all instruments. Liquid glue was applied to the skin. At the end of the procedure needle, sponge, and instrument count had been verified correct by the director medical surgical. The patient was transferred to postanesthesia care unit in stable condition. Intraoperative films were shared with the patient's family who were very pleased with the level of care. Console time 16 minutes
[2018-01-31] MEDS ORDERED: MORPHINE SULFATE 4 MG/ML SYRINGE IVP ONE (18:48)
--- NOTE | 2018-01-31 22:11 | P.PN ---
Progress Note - Text Progress Note Date: 01/31/18 Patient reports doing well following surgery. She is hungry. Patient may be discharged from surgical standpoint with follow-up as outpatient.
[2018-01-31] MEDS: MORPHINE SULFATE 4 MG/ML SYRINGE IV PRN (23:12)
[2018-02-01 05:57] LABS: Basophils % (A) 0 %; Eosinophils # (A) 0.1 k/uL (0-0.7); Eosinophils % (A) 1 %; HCT 38.3 % (34.0-46.0); HGB 12.8 gm/dL (11.4-16.0); Lymphocytes % (A) 9 %; MCH 32.1 pg (25.0-35.0); MCHC 33.4 g/dL (31.0-37.0); MCV 96.2 fL (80.0-100.0); Mean Platelet Volume 8.1; Monocytes # (A) 0.3 k/uL (0-1.0); Monocytes % (A) 3 %; Neutrophils # (A) 9.2 k/uL (1.3-7.7); Neutrophils % (A) 87 %; Platelet Count 197 k/uL (150-450); RBC 3.98 m/uL (3.80-5.40); RDW 12.4 % (11.5-15.5); WBC 10.6 k/uL (3.8-10.6)
[2018-02-01 06:23] LABS: ALT 119 U/L (9-52); AST 48 U/L (14-36); Albumin 3.1 g/dL (3.5-5.0); Alkaline Phosphatase 62 U/L (38-126); Anion Gap 7 mmol/L; Blood Urea Nitrogen 4 mg/dL (7-17); Calcium 8.2 mg/dL (8.4-10.2); Carbon Dioxide 21 mmol/L (22-30); Chloride 110 mmol/L (98-107); Glucose 128 mg/dL (74-99); Potassium 4.4 mmol/L (3.5-5.1); Sodium 138 mmol/L (137-145); Total Bilirubin 0.5 mg/dL (0.2-1.3); Total Protein 5.5 g/dL (6.3-8.2)
[2018-02-01] MEDS: ENOXAPARIN 40 MG/0.4 ML SYRINGE SQ SCH (08:09)
[2018-02-01] MEDS: NICOTINE 14MG/24HR PATCH TRANSDERM SCH (08:10)
[2018-02-01] MEDS: PANTOPRAZOLE 40 MG/10 ML VIAL IVP SCH (08:10)
[2018-02-01 08:57] VITALS: BP 154/74; PULSE 63; RESP 19; TEMP 98.2
[2018-02-01 09:38] LABS: Amylase <30 U/L (30-110); Lipase 39 U/L (23-300)
--- NOTE | 2018-02-01 10:35 | P.PN ---
Subjective Progress Note Date: 02/01/18 48-year-old female seen this morning at bedside. Tolerating diet. Has been up ambulating passing gas no stool surgical incision sites with plastic dressing dry. Abdomen is soft nondistended. Lipase 39 amylase less than 30 AST 48 ALT 119 alk phos 62 Patient is postop January 31 Robotic-assisted da Tyler Xi laparoscopic cholecystectomy, multiport with FIREFLY Objective - Vital Signs Vital signs: Vital Signs Temp 98.2 F 02/01/18 07:30 Pulse 63 02/01/18 07:30 Resp 19 02/01/18 07:30 BP 154/74 02/01/18 07:30 Pulse Ox 97 02/01/18 07:30 Intake & Output 01/31/18 02/01/18 02/01/18 18:59 06:59 18:59 Intake Total 1200 2420 Output Total 5 Balance 1195 2420 Intake: IV 1200 0 Oral 2420 Output: Estimated Blood Loss 5 Other: # Voids 1 1 - Exam Physical exam 48 year old female resting comfortably in bed appears in no acute distress is anxious to be discharged tolerating diet pain medication effective for pain control Lungs clear on room air Heart S1-S2 audible regular Abdomen surgical dressing sites dry soft not distended active bowel tones no nausea no vomiting tolerating diet surgical tenderness appropriate Extremities no edema - Labs CBC & Chem 7: 02/01/18 05:36 02/01/18 05:36 Labs: Abnormal Lab Results - Last 24 Hours (Table) 02/01/18 02/01/18 02/01/18 Range/Units 05:36 05:36 05:36 Neutrophils # 9.2 H (1.3-7.7) k/uL Chloride 110 H (98-107) mmol/L Carbon Dioxide 21 L (22-30) mmol/L BUN 4 L (7-17) mg/dL Creatinine 0.48 L (0.52-1.04) mg/dL Glucose 128 H (74-99) mg/dL Calcium 8.2 L (8.4-10.2) mg/dL AST 48 H (14-36) U/L ALT 119 H (9-52) U/L Total Protein 5.5 L (6.3-8.2) g/dL Albumin 3.1 L (3.5-5.0) g/dL Amylase <30 L (30-110) U/L Microbiology - Last 24 Hours (Table) 01/30/18 09:30 Urine Culture - Final Urine,Clean Catch Assessment and Plan Assessment: Impression Acute cholecystitis Status post Robotic-assisted da Tyler Xi laparoscopic cholecystectomy, multiport with FIREFLY done on January for gallstone pancreatitis with acute cholecystitis Obesity BMI 30.7 Active tobacco abuse Gallstone pancreatitis Plan From a surgical perspective is felt to be appropriate to be discharged defer to the timing to the attending Continue postop surgical care Diet as tolerated Follow-up as directed with Dr. Bullard The above impression and plan of care have been discussed and directed by signing physician. Aida Hooper nurse practitioner acting as scribe for signing physician.
--- NOTE | 2018-02-01 10:43 | P.DS ---
Providers Date of admission: 01/29/18 00:45 Expected date of discharge: 02/01/18 Attending physician: Giuseppe Latham Consults: 01/29/18 12:06 Consult Physician Routine Consulting Provider: Nita Kenny Consult Reason/Comments: pancreatitis Do you want consulting provider notified?: Yes Primary care physician: Sharon Martin Hospital Course: Discharge diagnosis 1. Acute pancreatitis. CT of abdomen and pelvis completed showing left-sided retroperitoneal fluid consistent with acute pancreatitis. Ascites also. No dilated ducts and mild proximal small bowel wall thickening suggestive localized enteritis. GI services have been consulted. WBC 15.3, AST-1, ALT 403 and lipase greater than 20,000. Patient currently nothing by mouth IV fluids initiated at 200 per hour. Morphine for pain control. General surgery consulted in regards to gallstone induced pancreatitis. Labs are improving. AST 53, ALT 186, amylase 104 and lipase 579. Patient has been started on clear liquids and will be nothing by mouth after midnight for possible gallbladder removal surgery tomorrow. AST improving to 29, ALT 138, and lipase 143. Cholecystectomy surgery planned for today at 4:[address] Rios. AST 48, ALT 119 amylase 104 and lipase 39. Patient will follow-up outpatient with GI services. Patient has been cleared for discharge from GI services 2. History of stomach ulcers 3. Nicotine dependence. Patient educated greater than 3 minutes on smoking cessation. Patient declined nicotine patch at this time 4. Anxiety 5. Status post lap cholecystectomy post op day 1. Patient is currently tolerating diet. Patient has been cleared for discharge from surgical services. Pain meds per surgical services. Patient will follow-up outpatient with surgical services Hospital course This is a 48-year-old female patient of Dr. Martin. Patient presents to the emergency room with complaints of epigastric pain. Patient does states she's been having intermittent epigastric pain for the past 2 years last night was more severe than she has had in the past. Patient states on Monday night she did indulge in multiple mixed alcoholic beverages. Patient also states she has been consuming more greasy foods over the past few days. Does state she has history of stomach ulcers, anxiety and nicotine dependence. With increased epigastric pain patient did experience nausea and vomiting. KUB completed showing a nonacute abdomen. CT of abdomen and pelvis completed showing left- sided retroperitoneal fluid consistent with acute pancreatitis. Class for gallstones. No dilated ducts. Mild proximal small small bowel wall thickening suggestive the localalized enteritis. WBC elevated at 15.3. AST 571, ALT 403 and lipase greater than 20,000. GI services have been consulted. Patient made nothing by mouth. IV fluids initiated. Patient has been receiving morphine for pain control. At this time patient states that morphine has been able to control her pain. Patient does denies nausea or vomiting. Denies any diarrhea. Denies chest pain or shortness of breath. Denies any urinary burning or frequency. On 01/30/2018 patient is currently up walking around room. Patient is alert and oriented 3. Patient states she feels much improved. Patient has not required IV pain medication throughout morning. Surgical services are consulted. Possible gallbladder removal today or tomorrow per surgical. At this time patient denies chest pain or shortness of breath. Patient denies nausea vomiting or diarrhea. Patient denies any urinary burning or frequency. On 01/31/2018 patient is currently alert and oriented 3. Patient states she feels much improved. Planning for cholecystectomy today at 4:[address] Rios. Patient denies nausea or vomiting. Patient denies chest pain or shortness of breath. Patient denies any urinary burning or frequency. Patient states she has been tolerating a clear liquid diet but is currently nothing by mouth now for surgery On 02/01/2018 patient is currently alert and oriented 3. Patient is eager to go home. Patient denies significant abdominal pain. Patient underwent lap annamaria with Dr. Rios yesterday. Patient has been cleared for discharge from GI and surgical services. This time patient denies nausea vomiting or diarrhea. Denies chest pain or shortness breath. Denies any urinary burning or frequency. Patient has been able to tolerate diet. Patient to follow-up closely with consulting providers and primary care doctor. I performed an examination of the patient and discussed their management with the Nurse Practitioner. I have reviewed the Nurse Practitioner's notes and agree with the documented findings and plan of care Patient Condition at Discharge: Stable Plan - Discharge Summary Discharge Rx Participant: Yes New Discharge Prescriptions: New Hydrocodone/Acetaminophen [[place] 5-325] 1 tab PO Q6HR PRN 3 Days #12 tab PRN Reason: Mild Pain Nicotine 14Mg/24Hr Patch [Habitrol] 1 patch TRANSDERM DAILY #30 patch Discharge Medication List Hydrocodone/Acetaminophen [[place] 5-325] 1 tab PO Q6HR PRN 3 Days #12 tab [Rx] Nicotine 14Mg/24Hr Patch [Habitrol] 1 patch TRANSDERM DAILY #30 patch 02/01/18 [ Rx] Follow up Appointment(s)/Referral(s): Sharon Martin MD [Primary Care Provider] - 1-2 days Nita Kenny MD [STAFF PHYSICIAN] - 02/12/18 (2:45PM) Kaylen Barrios MD [STAFF PHYSICIAN] - 1 Week Patient Instructions/Handouts: Low Fat Diet (DC), Laparoscopic Cholecystectomy (DC) Activity/Diet/Wound Care/Special Instructions: May shower. No bath tub soaks. No lifting over 4 pounds 1 week. Low-fat diet advised Discharge Disposition: HOME SELF-CARE
== END 2018-02-01 12:05 | disposition home or self-care (01) | DRG 418 ==
LOC: EC 21:40 → 6PED 01-29 00:45
PROVIDERS: ADMIT Internal Medicine; ATTEND Internal Medicine
PROC: 8E0W4CZ Robotic Assisted Procedure of Trunk Region, Percutaneous Endoscopic Approach (ICD-10-PCS; 2018-01-31)
PROC: 0FT44ZZ Resection of Gallbladder, Percutaneous Endoscopic Approach (ICD-10-PCS; principal; 2018-01-31 16:30)
DX: K85.10 Biliary acute pancreatitis without necrosis or infection (principal); K80.00 Calculus of gallbladder with acute cholecystitis without obstruction; R18.8 Other ascites; E66.9 Obesity, unspecified; F17.210 Nicotine dependence, cigarettes, uncomplicated; F10.10 Alcohol abuse, uncomplicated; F41.9 Anxiety disorder, unspecified; K21.9 Gastro-esophageal reflux disease without esophagitis; Z68.30 Body mass index [BMI] 30.0-30.9, adult; Z87.11 Personal history of peptic ulcer disease
CPT/HCPCS: 36415; 74018; 74177; 80053; 81001; 81025; 82150; 83690; 83735; 85025; 87086; 88304; 96361; 96374; 96375; 96376; 99285

== ENCOUNTER 2018-02-07 10:40 | Emergency (ER) | payer OTHER ==
[2018-02-07 10:44] VITALS: RESP 18
[2018-02-07] MEDS ORDERED: ONDANSETRON 4 MG/2 ML VIAL IVP STA (10:51)
[2018-02-07] MEDS ORDERED: SODIUM CHLORIDE 0.9% 1,000 ML IV STA (10:51)
[2018-02-07] MEDS ORDERED: FAMOTIDINE 20 MG/2 ML VIAL IV STA (11:06)
--- NOTE | 2018-02-07 11:06 | ED ---
General Adult HPI - General Chief complaint: Abdominal Pain Stated complaint: POST OP GALLBLADDER, Hx PANCREAS Time Seen by Provider: 02/07/18 10:50 Source: patient, RN notes reviewed, old records reviewed Mode of arrival: ambulatory Limitations: no limitations - History of Present Illness Initial comments: Patient's a 48-year-old female status post cholecystectomy times one week, presenting to the emergency room today with a chief complaint of epigastric pain with nausea vomiting. Patient does admit the pain is worse after eating drinking she has increased symptoms of nausea vomiting. Patient states that symptoms are similar to what they were prior to the surgery. She states she's had a difficult time keeping anything down because of the symptoms and has lost 10 pounds in the past week. She'll follow-up the family physician 3 days ago was advised to use an antacid which she has been taking Zantac. She states she has had little relief of the symptoms with this. She denies any other complaints currently. Patient denies any recent fever, chills, shortness of breath, chest pain, back pain, abdominal pain, nausea or vomiting, numbness or tingling, headaches or visual changes, or any other complaints. - Related Data Previous Rx's Medication Instructions Recorded Hydrocodone/Acetaminophen [[place] 1 tab PO Q6HR PRN 3 Days #12 tab 02/01/18 5-325] Nicotine 14Mg/24Hr Patch [Habitrol] 1 patch TRANSDERM DAILY #30 patch 02/01/18 Omeprazole 20 mg PO DAILY #20 capsule. 02/07/18 Omeprazole 40 mg PO DAILY #30 capsule. 02/07/18 Ondansetron Odt [Zofran ODT] 4 mg PO Q8HR PRN #20 tab 02/07/18 Allergies Allergy/AdvReac Type Severity Reaction Status Date / Time No Known Allergies Allergy Verified 02/07/18 10:44 Review of Systems ROS Statement: Those systems with pertinent positive or pertinent negative responses have been documented in the HPI. ROS Other: All systems not noted in ROS Statement are negative. Past Medical History Past Medical History: No Reported History Additional Past Medical History / Comment(s): stomach ulcers History of Any Multi-Drug Resistant Organisms: None Reported Past Surgical History: Cholecystectomy, Tonsillectomy Past Psychological History: Anxiety Smoking Status: Current every day smoker Past Alcohol Use History: Occasional Past Drug Use History: None Reported - Past Family History Mother Family Medical History: No Reported History General Exam - General Exam Comments Initial Comments: General: The patient is awake and alert, in no distress, and does not appear acutely ill. Eye: Extra-ocular movements are intact. No nystagmus. There is normal conjunctiva bilaterally. No signs of icterus. Ears, nose, mouth and throat: There are moist mucous membranes and no oral lesions. Neck: The neck is supple, there is no tenderness or JVD. Cardiovascular: There is a regular rate and rhythm. No murmur, rub or gallop is appreciated. Respiratory: Lungs are clear to auscultation, respirations are non-labored, breath sounds are equal. No wheezes, stridor, rales, or rhonchi. Gastrointestinal: Abdomen soft on palpation. No rebound, guarding or CVA tenderness. Mild tenderness in epigastric. Musculoskeletal: Normal ROM, no tenderness. Sensation intact. Neurological: A&O x 3. CN II-XII intact, There are no obvious motor or sensory deficits. Coordination appears grossly intact. Speech is normal. Skin: Skin is warm and dry and no rashes or lesions are noted. Psychiatric: Cooperative, appropriate mood & affect, normal judgment. Limitations: no limitations Course Vital Signs 02/07/18 10:41 Temperature 98.1 F Pulse Rate 78 Respiratory 18 Rate Blood Pressure 157/98 O2 Sat by Pulse 100 Oximetry Medical Decision Making - Medical Decision Making This reexamined at this time shows no signs of distress resting comfortable. Her labs been reviewed. Ultrasound showed no acute abnormalities. Results were discussed with the patient. At this time patient is advised following up with her surgeon over the next 2 days. Advised that we will write for omeprazole and Zofran for her symptoms. Advised return if any symptoms increase worsen. - Lab Data Result diagrams: 02/07/18 11:00 02/07/18 11:00 Lab Results 02/07/18 02/07/18 02/07/18 Range/Units 11:00 11:00 11:00 WBC 9.7 (3.8-10.6) k/uL RBC 5.16 (3.80-5.40) m/uL Hgb 16.4 H D (11.4-16.0) gm/dL Hct 49.3 H (34.0-46.0) % MCV 95.6 (80.0-100.0) fL MCH 31.8 (25.0-35.0) pg MCHC 33.2 (31.0-37.0) g/dL RDW 12.4 (11.5-15.5) % Plt Count 358 (150-450) k/uL Neutrophils % 69 % Lymphocytes % 23 % Monocytes % 6 % Eosinophils % 1 % Basophils % 0 % Neutrophils # 6.7 (1.3-7.7) k/uL Lymphocytes # 2.2 (1.0-4.8) k/uL Monocytes # 0.6 (0-1.0) k/uL Eosinophils # 0.1 (0-0.7) k/uL Basophils # 0.0 (0-0.2) k/uL Sodium 137 (137-145) mmol/L Potassium 5.2 H (3.5-5.1) mmol/L Chloride 100 (98-107) mmol/L Carbon Dioxide 27 (22-30) mmol/L Anion Gap 10 mmol/L BUN 7 (7-17) mg/dL Creatinine 0.61 (0.52-1.04) mg/dL Est GFR (CKD-EPI)AfAm >90 (>60 ml/min/1.73 sqM) Est GFR (CKD-EPI)NonAf >90 (>60 ml/min/1.73 sqM) Glucose 120 H (74-99) mg/dL Calcium 9.4 (8.4-10.2) mg/dL Total Bilirubin 0.5 (0.2-1.3) mg/dL AST 17 (14-36) U/L ALT 40 (9-52) U/L Alkaline Phosphatase 72 (38-126) U/L Total Protein 7.4 (6.3-8.2) g/dL Albumin 4.2 (3.5-5.0) g/dL Amylase 37 (30-110) U/L Lipase 146 (23-300) U/L Urine Color Urine Appearance (Clear) Urine pH (5.0-8.0) Ur Specific [employer] (1.001-1.035) Urine Protein (Negative) Urine Glucose (UA) (Negative) Urine Ketones (Negative) Urine Blood (Negative) Urine Nitrite (Negative) Urine Bilirubin (Negative) Urine Urobilinogen (<2.0) mg/dL Ur Leukocyte Esterase (Negative) Urine RBC (0-5) /hpf Urine WBC (0-5) /hpf Ur Squamous Epith Cells (0-4) /hpf Amorphous Sediment (None) /hpf Urine Bacteria (None) /hpf Urine Mucus (None) /hpf Urine HCG, Qual Not Detected (Not Detectd) 02/07/18 Range/Units 11:00 WBC (3.8-10.6) k/uL RBC (3.80-5.40) m/uL Hgb (11.4-16.0) gm/dL Hct (34.0-46.0) % MCV (80.0-100.0) fL MCH (25.0-35.0) pg MCHC (31.0-37.0) g/dL RDW (11.5-15.5) % Plt Count (150-450) k/uL Neutrophils % % Lymphocytes % % Monocytes % % Eosinophils % % Basophils % % Neutrophils # (1.3-7.7) k/uL Lymphocytes # (1.0-4.8) k/uL Monocytes # (0-1.0) k/uL Eosinophils # (0-0.7) k/uL Basophils # (0-0.2) k/uL Sodium (137-145) mmol/L Potassium (3.5-5.1) mmol/L Chloride (98-107) mmol/L Carbon Dioxide (22-30) mmol/L Anion Gap mmol/L BUN (7-17) mg/dL Creatinine (0.52-1.04) mg/dL Est GFR (CKD-EPI)AfAm (>60 ml/min/1.73 sqM) Est GFR (CKD-EPI)NonAf (>60 ml/min/1.73 sqM) Glucose (74-99) mg/dL Calcium (8.4-10.2) mg/dL Total Bilirubin (0.2-1.3) mg/dL AST (14-36) U/L ALT (9-52) U/L Alkaline Phosphatase (38-126) U/L Total Protein (6.3-8.2) g/dL Albumin (3.5-5.0) g/dL Amylase (30-110) U/L Lipase (23-300) U/L Urine Color Yellow Urine Appearance Cloudy H (Clear) Urine pH 8.0 (5.0-8.0) Ur Specific [employer] 1.023 (1.001-1.035) Urine Protein 1+ H (Negative) Urine Glucose (UA) Negative (Negative) Urine Ketones Negative (Negative) Urine Blood Negative (Negative) Urine Nitrite Negative (Negative) Urine Bilirubin Negative (Negative) Urine Urobilinogen <2.0 (<2.0) mg/dL Ur Leukocyte Esterase Negative (Negative) Urine RBC 5 (0-5) /hpf Urine WBC 2 (0-5) /hpf Ur Squamous Epith Cells 3 (0-4) /hpf Amorphous Sediment Rare H (None) /hpf Urine Bacteria Rare H (None) /hpf Urine Mucus Few H (None) /hpf Urine HCG, Qual (Not Detectd) Disposition Clinical Impression: Abdominal pain Disposition: HOME SELF-CARE Condition: Good Instructions: Abdominal Pain (ED) Additional Instructions: Please follow-up with the surgeon as discussed. Please use medications as prescribed and return to emergency room for any other concerns. Prescriptions: Omeprazole 20 mg PO DAILY #20 capsule. Ondansetron Odt [Zofran ODT] 4 mg PO Q8HR PRN #20 tab PRN Reason: Nausea Is patient prescribed a controlled substance at d/c from ED?: No Referrals: Sharon Martin MD [Primary Care Provider] - 1-2 days Nita Kenny MD [STAFF PHYSICIAN] - 1-2 days Time of Disposition: 13:39
[2018-02-07 11:29] LABS: Basophils % (A) 0 %; Eosinophils # (A) 0.1 k/uL (0-0.7); Eosinophils % (A) 1 %; HCT 49.3 % (34.0-46.0); Lymphocytes # (A) 2.2 k/uL (1.0-4.8); Lymphocytes % (A) 23 %; MCH 31.8 pg (25.0-35.0); MCHC 33.2 g/dL (31.0-37.0); MCV 95.6 fL (80.0-100.0); Mean Platelet Volume 7.1; Monocytes # (A) 0.6 k/uL (0-1.0); Monocytes % (A) 6 %; Neutrophils # (A) 6.7 k/uL (1.3-7.7); Neutrophils % (A) 69 %; Platelet Count 358 k/uL (150-450); RBC 5.16 m/uL (3.80-5.40); RDW 12.4 % (11.5-15.5); WBC 9.7 k/uL (3.8-10.6)
[2018-02-07 11:33] LABS: ALT 40 U/L (9-52); AST 17 U/L (14-36); Albumin 4.2 g/dL (3.5-5.0); Alkaline Phosphatase 72 U/L (38-126); Amylase 37 U/L (30-110); Anion Gap 10 mmol/L; Blood Urea Nitrogen 7 mg/dL (7-17); Calcium 9.4 mg/dL (8.4-10.2); Carbon Dioxide 27 mmol/L (22-30); Chloride 100 mmol/L (98-107); Glucose 120 mg/dL (74-99); Lipase 146 U/L (23-300); Potassium 5.2 mmol/L (3.5-5.1); Sodium 137 mmol/L (137-145); Total Bilirubin 0.5 mg/dL (0.2-1.3); Total Protein 7.4 g/dL (6.3-8.2)
[2018-02-07 11:34] LABS: HGB 16.4 gm/dL (11.4-16.0)
[2018-02-07 11:41] LABS: Amorphous Sediment,Urine Rare /hpf; Appearance,Urine Cloudy (Clear); Bacteria,Urine Rare /hpf; Bilirubin,Urine Negative (Negative); Blood,Urine Negative (Negative); Color,Urine Yellow; Glucose,Urine (UA) Negative (Negative); Ketones,Urine Negative (Negative); Leukocyte Esterase,Urine Negative (Negative); Mucus,Urine Few /hpf; Nitrite,Urine Negative (Negative); Protein,Urine 1+ (Negative); RBC,Urine 5 /hpf (0-5); Specific Gravity,Urine 1.023 (1.001-1.035); Squamous Epithelial Cell,Urine 3 /hpf (0-4); Urobilinogen,Urine <2.0 mg/dL (<2.0)
--- NOTE | 2018-02-07 12:46 | US ---
EXAMINATION TYPE: US abdomen limited DATE OF EXAM: 02/07/2018 COMPARISON: CLINICAL HISTORY: Pain. GB removed x 1 week. Epigastric pain. EXAM MEASUREMENTS: Liver Length: 14.2 cm CHD: 0.7 cm Right Kidney: 10.7 x 5.0 x 4.3 cm Pancreas: Tail obscured by overlying bowel gas Liver: wnl Gallbladder: Surgically absent Evidence for sonographic Napier's sign: neg CBD: Obscured by overlying bowel gas CHD: wnl Right Kidney: wnl IMPRESSION: No significant abnormality appreciated.
[2018-02-07 13:48] VITALS: BP 176/83; PULSE 88; TEMP 98
== END 2018-02-07 14:00 | disposition home or self-care (01) ==
LOC: EC 10:40
DX: R10.13 Epigastric pain (principal); R11.2 Nausea with vomiting, unspecified; R63.4 Abnormal weight loss; F17.200 Nicotine dependence, unspecified, uncomplicated; Z90.49 Acquired absence of other specified parts of digestive tract; Z53.20 Procedure and treatment not carried out because of patient's decision for unspecified reasons
CPT/HCPCS: 36415; 76705; 80053; 81001; 81025; 82150; 83690; 85025; 96361; 96374; 99284

== ENCOUNTER → 2018-11-30 | Outpatient (CLI) | payer OTHER ==
--- NOTE | 2018-11-30 09:51 | US ---
EXAMINATION TYPE: US transvaginal DATE OF EXAM: 11/30/2018 COMPARISON: CT 01/28/18 CLINICAL HISTORY: 48-year-old female N92.1 Excessive and frequent menstruation w/irreg. LMP August or September, but spotting since. TECHNIQUE: Transabdominal sonographic images of the pelvis were acquired. Transvaginal sonographic images were medically necessary to better assess the following anatomy: all Date of LMP: ? August or September FINDINGS: EXAM MEASUREMENTS: Uterus: 16.6 x 9.1 x 9.1 cm Endometrial Stripe: 0.9 cm Right Ovary: Not seen cm Left Ovary: Not seen cm 1. Uterus: Anteverted Large, fibroid uterus. Largest is posterior = 9.1 x 6.4 x 6.0 cm . Tiny cerv ical nabothian cyst measuring 6 mm. 2. Endometrium: somewhat obscured by fibroids 3. Right Ovary: Obscured by overlying bowel gas and fibroids. 4. Left Ovary: Obscured by overlying bowel gas and fibroids. 5. Bilateral Adnexa: wnl 6. Posterior cul-de-sac: wnl IMPRESSION: Bulky fibroid uterus partially obscuring the endometrial stripe. Largest fibroid measures up to 9.1 c m. Neither ovary could be visualized due to combination of bowel gas and bulky fibroids. If further e valuation or fibroid mapping is desired, female MRI pelvis could be performed.
== END ==
LOC: RADUSWWP 08:57
PROVIDERS: ATTEND Internal Medicine
DX: D25.9 Leiomyoma of uterus, unspecified (principal)
CPT/HCPCS: 76830

== ENCOUNTER 2019-07-03 14:22 | Emergency (ER) | payer OTHER ==
[2019-07-03 14:29] VITALS: RESP 18
[2019-07-03] MEDS ORDERED: KETOROLAC 30 MG/ML 1 ML VIAL IVP STA (15:05)
[2019-07-03] MEDS ORDERED: SODIUM CHLORIDE 0.9% 1,000 ML IV STA (15:05)
[2019-07-03 15:35] LABS: Basophils % (A) 0 %; Eosinophils % (A) 0 %; HCT 35.7 % (34.0-46.0); HGB 11.6 gm/dL (11.4-16.0); Lymphocytes # (A) 1.8 k/uL (1.0-4.8); Lymphocytes % (A) 12 %; MCH 30.2 pg (25.0-35.0); MCHC 32.6 g/dL (31.0-37.0); MCV 92.7 fL (80.0-100.0); Mean Platelet Volume 7.9; Monocytes # (A) 0.6 k/uL (0-1.0); Monocytes % (A) 5 %; Neutrophils # (A) 11.7 k/uL (1.3-7.7); Neutrophils % (A) 82 %; Platelet Count 393 k/uL (150-450); RBC 3.85 m/uL (3.80-5.40); RDW 12.4 % (11.5-15.5); WBC 14.2 k/uL (3.8-10.6)
[2019-07-03 15:44] LABS: INR 0.9 (<1.2); Prothrombin Time 9.7 sec (9.0-12.0)
[2019-07-03 15:46] LABS: ALT 44 U/L (4-34); AST 36 U/L (14-36); African American GFR (CKD) >90 (>60 ml/min/1.73 sqM); Albumin 3.6 g/dL (3.5-5.0); Alkaline Phosphatase 77 U/L (38-126); Amylase <30 U/L (30-110); Anion Gap 8 mmol/L; Blood Urea Nitrogen 12 mg/dL (7-17); Calcium 8.4 mg/dL (8.4-10.2); Carbon Dioxide 23 mmol/L (22-30); Chloride 105 mmol/L (98-107); Glucose 117 mg/dL (74-99); Non-African American GFR(CKD) >90 (>60 ml/min/1.73 sqM); Potassium 4.5 mmol/L (3.5-5.1); Sodium 136 mmol/L (137-145); Total Bilirubin 0.3 mg/dL (0.2-1.3); Total Protein 6.3 g/dL (6.3-8.2)
[2019-07-03 15:48] LABS: Appearance,Urine Clear (Clear); Bilirubin,Urine Negative (Negative); Blood,Urine Moderate (Negative); Color,Urine Yellow; Glucose,Urine (UA) Negative (Negative); Ketones,Urine Negative (Negative); Leukocyte Esterase,Urine Trace (Negative); Mucus,Urine Occasional /hpf; Nitrite,Urine Negative (Negative); PH, Urine 5.5 (5.0-8.0); Protein,Urine Trace (Negative); RBC,Urine 2 /hpf (0-5); Specific Gravity,Urine 1.026 (1.001-1.035); Squamous Epithelial Cell,Urine 1 /hpf (0-4); Urobilinogen,Urine <2.0 mg/dL (<2.0); WBC,Urine 4 /hpf (0-5)
--- NOTE | 2019-07-03 15:58 | ED ---
Abdominal Pain HPI - General Chief Complaint: Abdominal Pain Stated Complaint: vaginal pain, bleeding, post surgery Time Seen by Provider: 07/03/19 14:48 Source: patient Mode of arrival: ambulatory Limitations: no limitations - History of Present Illness Initial Comments: Patient is a 49-year-old female presenting to emergency Department with complaints of left-sided abdominal pain since yesterday. Patient is status post abdominal hysterectomy on 06/24/[address] Yeboah. She has been healing well and has had no complications. She recently had follow-up with Dr. Yeboah 2 weeks ago and is progressing as normal. Patient states yesterday she started noticing left sided abdominal pain and left flank pain. She also states she has been having mild vaginal bleeding. She did call Dr. Yeboah's office yesterday regarding the vaginal bleeding and they said this is normal. She admits to low- grade fevers running 99.1-99.8 since the surgery. She denies nausea, vomiting, diarrhea. She has been having regular bowel movements with her last one being yesterday. She denies chest pain, shortness of breath. She denies history of kidney stones. She admits to history of cholecystectomy, and hysterectomy no other abdominal surgeries. She has no other complaints at this time. Upon arrival to the ER, her vital signs are stable. - Related Data Home Medications Medication Instructions Recorded Confirmed Ranitidine HCl [Zantac] 150 mg PO BID PRN 04/09/18 04/11/18 Previous Rx's Medication Instructions Recorded Cephalexin [Keflex] 500 mg PO BID 10 Days #20 cap 07/03/19 Ketorolac [Toradol] 10 mg PO Q8HR #10 tab 07/03/19 Allergies Allergy/AdvReac Type Severity Reaction Status Date / Time No Known Allergies Allergy Verified 07/03/19 14:29 Review of Systems ROS Statement: Those systems with pertinent positive or pertinent negative responses have been documented in the HPI. ROS Other: All systems not noted in ROS Statement are negative. Past Medical History Past Medical History: GERD/Reflux Additional Past Medical History / Comment(s): stomach ulcers History of Any Multi-Drug Resistant Organisms: None Reported Past Surgical History: Cholecystectomy, Hysterectomy, Tonsillectomy Past Anesthesia/Blood Transfusion Reactions: No Reported Reaction Past Psychological History: Anxiety Smoking Status: Current every day smoker Past Alcohol Use History: None Reported Past Drug Use History: None Reported - Past Family History Mother Family Medical History: No Reported History General Exam - General Exam Comments Initial Comments: GENERAL: Well-appearing, well-nourished and in no acute distress. HEAD: Atraumatic, normocephalic. EYES: Pupils equal round and reactive to light, extraocular movements intact, sclera anicteric, conjunctiva are normal. ENT: TMs normal, nares patent, oropharynx clear without exudates. Moist mucous membranes. NECK: Normal range of motion, supple without lymphadenopathy or JVD. LUNGS: Breath sounds clear to auscultation bilaterally and equal. No wheezes rales or rhonchi. HEART: Regular rate and rhythm without murmurs, rubs or gallops. ABDOMEN: Tender to palpation epigastric, left upper quadrant, left flank pain. Mild lower abdominal discomfort, crampy feelings secondary to recent hysterectomy. Soft, normoactive bowel sounds. No guarding, no rebound. No masses appreciated. : Deferred EXTREMITIES: Normal range of motion, no pitting or edema. No clubbing or cyanosis. NEUROLOGICAL: Normal speech, normal gait. PSYCH: Normal mood, normal affect. SKIN: Warm, Dry, normal turgor. Recent abdominal incision looks clean and dry and intact, no signs of infection. Limitations: no limitations Course Vital Signs 07/03/19 07/03/19 14:25 17:31 Temperature 98.1 F 98.8 F Pulse Rate 75 87 Respiratory 18 18 Rate Blood Pressure 142/71 122/80 O2 Sat by Pulse 100 99 Oximetry Medical Decision Making - Medical Decision Making Patient is a 49-year-old female presenting with left sided abdominal pain and left flank pain since yesterday. Patient had recent abdominal hysterectomy at [facility] by Dr. Yeboah. Vitals are stable.Lab work shows slight leukocytosis of 14.2, rest of labs are normal. Lactic acid 0.9. Urine shows some blood, no signs of infection. CT of the abdomen shows concern for pyelonephritis of the left kidney, small fluid collection at the site of hysterectomy which may be a seroma. There is also subcutaneous fluid near the postoperative seroma. Infection is not excluded at this time. I discussed these findings with the patient. We attempted to contact Dr. Yeboah or his office or another covering [employer]CH[employer]ICIAN at [facility] however we were unsuccessful. Patient will be given 1 g Rocephin or pyelonephritis. She will be started on Keflex outpatient and needs to follow-up with Dr. Rodriges office tomorrow morning. She is in agreement with this plan. He is stable for discharge at this time. Strict return parameters were discussed with the patient and she verbalized understanding. Case was discussed with Dr. Lopez who is in agreement with this plan of care. - Lab Data Result diagrams: 07/03/19 15:21 07/03/19 15:21 Lab Results 07/03/19 07/03/19 07/03/19 Range/Units 15:21 15:21 15:21 WBC 14.2 H (3.8-10.6) k/uL RBC 3.85 (3.80-5.40) m/uL Hgb 11.6 (11.4-16.0) gm/dL Hct 35.7 (34.0-46.0) % MCV 92.7 (80.0-100.0) fL MCH 30.2 (25.0-35.0) pg MCHC 32.6 (31.0-37.0) g/dL RDW 12.4 (11.5-15.5) % Plt Count 393 (150-450) k/uL Neutrophils % 82 % Lymphocytes % 12 % Monocytes % 5 % Eosinophils % 0 % Basophils % 0 % Neutrophils # 11.7 H (1.3-7.7) k/uL Lymphocytes # 1.8 (1.0-4.8) k/uL Monocytes # 0.6 (0-1.0) k/uL Eosinophils # 0.0 (0-0.7) k/uL Basophils # 0.0 (0-0.2) k/uL PT (9.0-12.0) sec INR (<1.2) APTT (22.0-30.0) sec Sodium 136 L (137-145) mmol/L Potassium 4.5 (3.5-5.1) mmol/L Chloride 105 (98-107) mmol/L Carbon Dioxide 23 (22-30) mmol/L Anion Gap 8 mmol/L BUN 12 (7-17) mg/dL Creatinine 0.62 (0.52-1.04) mg/dL Est GFR (CKD-EPI)AfAm >90 (>60 ml/min/1.73 sqM) Est GFR (CKD-EPI)NonAf >90 (>60 ml/min/1.73 sqM) Glucose 117 H (74-99) mg/dL Plasma Lactic Acid Andre 0.9 (0.7-2.0) mmol/L Calcium 8.4 (8.4-10.2) mg/dL Total Bilirubin 0.3 (0.2-1.3) mg/dL AST 36 (14-36) U/L ALT 44 H (4-34) U/L Alkaline Phosphatase 77 (38-126) U/L Total Protein 6.3 (6.3-8.2) g/dL Albumin 3.6 (3.5-5.0) g/dL Amylase <30 L (30-110) U/L Lipase 58 (23-300) U/L Urine Color Urine Appearance (Clear) Urine pH (5.0-8.0) Ur Specific [place] (1.001-1.035) Urine Protein (Negative) Urine Glucose (UA) (Negative) Urine Ketones (Negative) Urine Blood (Negative) Urine Nitrite (Negative) Urine Bilirubin (Negative) Urine Urobilinogen (<2.0) mg/dL Ur Leukocyte Esterase (Negative) Urine RBC (0-5) /hpf Urine WBC (0-5) /hpf Ur Squamous Epith Cells (0-4) /hpf Urine Mucus (None) /hpf 07/03/19 07/03/19 Range/Units 15:21 15:21 WBC (3.8-10.6) k/uL RBC (3.80-5.40) m/uL Hgb (11.4-16.0) gm/dL Hct (34.0-46.0) % MCV (80.0-100.0) fL MCH (25.0-35.0) pg MCHC (31.0-37.0) g/dL RDW (11.5-15.5) % Plt Count (150-450) k/uL Neutrophils % % Lymphocytes % % Monocytes % % Eosinophils % % Basophils % % Neutrophils # (1.3-7.7) k/uL Lymphocytes # (1.0-4.8) k/uL Monocytes # (0-1.0) k/uL Eosinophils # (0-0.7) k/uL Basophils # (0-0.2) k/uL PT 9.7 (9.0-12.0) sec INR 0.9 (<1.2) APTT 26.0 (22.0-30.0) sec Sodium (137-145) mmol/L Potassium (3.5-5.1) mmol/L Chloride (98-107) mmol/L Carbon Dioxide (22-30) mmol/L Anion Gap mmol/L BUN (7-17) mg/dL Creatinine (0.52-1.04) mg/dL Est GFR (CKD-EPI)AfAm (>60 ml/min/1.73 sqM) Est GFR (CKD-EPI)NonAf (>60 ml/min/1.73 sqM) Glucose (74-99) mg/dL Plasma Lactic Acid Andre (0.7-2.0) mmol/L Calcium (8.4-10.2) mg/dL Total Bilirubin (0.2-1.3) mg/dL AST (14-36) U/L ALT (4-34) U/L Alkaline Phosphatase (38-126) U/L Total Protein (6.3-8.2) g/dL Albumin (3.5-5.0) g/dL Amylase (30-110) U/L Lipase (23-300) U/L Urine Color Yellow Urine Appearance Clear (Clear) Urine pH 5.5 (5.0-8.0) Ur Specific [place] 1.026 (1.001-1.035) Urine Protein Trace H (Negative) Urine Glucose (UA) Negative (Negative) Urine Ketones Negative (Negative) Urine Blood Moderate H (Negative) Urine Nitrite Negative (Negative) Urine Bilirubin Negative (Negative) Urine Urobilinogen <2.0 (<2.0) mg/dL Ur Leukocyte Esterase Trace H (Negative) Urine RBC 2 (0-5) /hpf Urine WBC 4 (0-5) /hpf Ur Squamous Epith Cells 1 (0-4) /hpf Urine Mucus Occasional H (None) /hpf Disposition Clinical Impression: Left sided abdominal pain, Pyelonephritis Disposition: HOME SELF-CARE Condition: Stable Instructions (If sedation given, give patient instructions): Kidney Infection (ED) Additional Instructions: Please return to the Emergency Department if symptoms worsen or any other concerns. Continue with antibiotics as prescribed as well as Toradol as needed for pain control. Follow-up with Dr. Yeboah's office tomorrow. Prescriptions: Cephalexin [Keflex] 500 mg PO BID 10 Days #20 cap Ketorolac [Toradol] 10 mg PO Q8HR #10 tab Is patient prescribed a controlled substance at d/c from ED?: No Referrals: None,Stated [Primary Care Provider] - 1-2 days
--- NOTE | 2019-07-03 16:22 | CT ---
EXAMINATION TYPE: CT abdomen pelvis w con DATE OF EXAM: 07/03/2019 COMPARISON: January 28, 2018 HISTORY: Left upper quadrant pain. Hysterectomy [address] DLP: 1265.7 mGycm CONTRAST: CT scan of the abdomen and pelvis is performed without Oral Contrast and with IV Contrast, patient in jected with 100 mL of Isovue 300. FINDINGS: LUNG BASES-: No visible nodule. Left basilar atelectasis or infiltrate noted. LIVER/GB: The gallbladder is surgically absent. No space occupying hepatic lesion. Biliary tree is of normal caliber. PANCREAS: No inflammation. No distinct mass. SPLEEN: No splenic enlargement. No lesion seen. ADRENALS: No nodule. No thickening. KIDNEYS/BLADDER: Heterogenous enhancement left kidney compatible with pyelonephritis. No hydronephro sis. No nephrolithiasis. No distinct renal mass. Urinary bladder grossly unremarkable. BOWEL: Normal appendix. Normal bowel caliber. No inflammation. GENITAL ORGANS: Hysterectomy changes noted. Small 2.3 cm fluid collection at the hysterectomy site w hich may reflect postoperative seroma. No evidence for internal air to suggest abscess. There is subc utaneous fluid noted along the low anterior abdominal wall several internal foci of air seen felt to reflect postoperative seroma. Measures 13 cm in length by 1 cm AP dimension. Infected collection is difficult to exclude. No ovarian masses seen. LYMPH NODES: No greater than 1cm abdominal or pelvic lymph nodes are appreciated. AORTA: No significant abnormality. OSSEOUS STRUCTURES: No significant abnormality is seen. OTHER: No significant additional abnormality is seen. IMPRESSION: 1. Pyelonephritis left kidney. 2. Small fluid collection at the hysterectomy site may reflect seroma. 3 subcutaneous fluid and multiple small foci of air likely on the basis of postoperative seroma. Infe cted collection is difficult to exclude.
[2019-07-03 17:32] VITALS: BP 122/80; PULSE 87; TEMP 98.8
[2019-07-03] MEDS ORDERED: cefTRIAXone IN SWFI 1,000 MG/10 ML SYRINGE IVP STA (17:37)
== END 2019-07-03 18:02 | disposition home or self-care (01) ==
LOC: EC 14:22
DX: N12 Tubulo-interstitial nephritis, not specified as acute or chronic (principal); K21.9 Gastro-esophageal reflux disease without esophagitis; F17.200 Nicotine dependence, unspecified, uncomplicated; Z90.710 Acquired absence of both cervix and uterus; Z90.49 Acquired absence of other specified parts of digestive tract
CPT/HCPCS: 36415; 80053; 82150; 83605; 83690; 85025; 85610; 85730; 81001; 74177; 99284; 96374; 96375; 96361 ×3; J0696; J1885; Q9967

== ENCOUNTER 2019-10-30 01:17 | Emergency (ER) | payer OTHER ==
[2019-10-30 01:24] VITALS: RESP 18; TEMP 99.2
--- NOTE | 2019-10-30 01:51 | ED ---
Abdominal Pain HPI - General Chief Complaint: Abdominal Pain Stated Complaint: Upper Abd Pain Time Seen by Provider: 10/30/19 01:30 Source: patient Mode of arrival: ambulatory Limitations: no limitations - History of Present Illness Initial Comments: This patient is a 49-year-old woman presenting with midline upper and periumbilical abdominal pain. She states that this is identical to a previous episode of pancreatitis that she had associated with gallstones. She did have her gallbladder removed over a year ago and had not had problems since that time. The patient states that with the code pandemic she has been drinking more than usual and she had a number of drinks this weekend. The patient states that associated with this pain she has been having nausea vomiting and diarrhea. She has not seen any coffee-ground or bloody emesis, nor any dark tarry or bloody stools. MD Complaint: abdominal pain -: days(s) Location: periumbilical, epigastric Radiation: none Migration to: no migration Severity: moderate Quality: aching Consistency: constant Improves With: nothing Worsens With: nothing Associated Symptoms: nausea, vomiting, diarrhea - Related Data Home Medications Medication Instructions Recorded Confirmed Ranitidine HCl [Zantac] 150 mg PO BID PRN 04/09/18 04/11/18 Previous Rx's Medication Instructions Recorded Cephalexin [Keflex] 500 mg PO BID 10 Days #20 cap 07/03/19 Ketorolac [Toradol] 10 mg PO Q8HR #10 tab 07/03/19 Dicyclomine [Bentyl] 20 mg PO QID #15 tablet 10/30/19 Famotidine [Pepcid] 20 mg PO BID #14 tablet 10/30/19 Ondansetron Odt [Zofran ODT] 4 mg PO Q8HR PRN #10 tab 10/30/19 Allergies Allergy/AdvReac Type Severity Reaction Status Date / Time No Known Allergies Allergy Verified 10/30/19 01:24 Review of Systems ROS Statement: Those systems with pertinent positive or pertinent negative responses have been documented in the HPI. ROS Other: All systems not noted in ROS Statement are negative. Constitutional: Denies: fever, chills Respiratory: Denies: cough, dyspnea Cardiovascular: Denies: chest pain, palpitations Gastrointestinal: Reports: abdominal pain, nausea, vomiting, diarrhea. Denies: constipation, hematemesis, melena, hematochezia Genitourinary: Denies: dysuria, hematuria Musculoskeletal: Denies: back pain Skin: Denies: rash Neurological: Denies: headache, weakness, numbness Past Medical History Past Medical History: GERD/Reflux Additional Past Medical History / Comment(s): stomach ulcers History of Any Multi-Drug Resistant Organisms: None Reported Past Surgical History: Cholecystectomy, Hysterectomy, Tonsillectomy Past Anesthesia/Blood Transfusion Reactions: No Reported Reaction Past Psychological History: Anxiety Smoking Status: Current every day smoker Past Alcohol Use History: Occasional Past Drug Use History: None Reported - Past Family History Mother Family Medical History: No Reported History General Exam Limitations: no limitations General appearance: alert, in no apparent distress Head exam: Present: atraumatic, normocephalic Eye exam: Present: normal appearance. Absent: scleral icterus, conjunctival i njection Respiratory exam: Present: normal lung sounds bilaterally. Absent: respiratory distress, wheezes, rales, rhonchi, stridor Cardiovascular Exam: Present: regular rate, normal rhythm, normal heart sounds. Absent: systolic murmur, diastolic murmur, rubs, gallop GI/Abdominal exam: Present: soft. Absent: distended, tenderness, guarding, rebound, rigid, mass Extremities exam: Present: normal inspection, normal capillary refill. Absent: pedal edema, calf tenderness Back exam: Present: normal inspection. Absent: CVA tenderness (R), CVA tenderness (L) Neurological exam: Present: alert Skin exam: Present: warm, dry, intact, normal color. Absent: rash Course Vital Signs 10/30/19 01:19 Temperature 99.2 F Pulse Rate 88 Respiratory 18 Rate Blood Pressure 175/106 O2 Sat by Pulse 99 Oximetry Medical Decision Making - Lab Data Result diagrams: 10/30/19 02:02 10/30/19 02:02 Lab Results 10/30/19 10/30/19 10/30/19 Range/Units 02:02 02:02 02:02 WBC 11.3 H (3.8-10.6) k/uL RBC 4.66 (3.80-5.40) m/uL Hgb 14.7 (11.4-16.0) gm/dL Hct 43.3 (34.0-46.0) % MCV 92.9 (80.0-100.0) fL MCH 31.6 (25.0-35.0) pg MCHC 34.1 (31.0-37.0) g/dL RDW 14.1 (11.5-15.5) % Plt Count 216 (150-450) k/uL Neutrophils % 70 % Lymphocytes % 22 % Monocytes % 4 % Eosinophils % 1 % Basophils % 0 % Neutrophils # 8.0 H (1.3-7.7) k/uL Lymphocytes # 2.5 (1.0-4.8) k/uL Monocytes # 0.5 (0-1.0) k/uL Eosinophils # 0.2 (0-0.7) k/uL Basophils # 0.0 (0-0.2) k/uL Sodium 135 L (137-145) mmol/L Potassium 4.3 (3.5-5.1) mmol/L Chloride 106 (98-107) mmol/L Carbon Dioxide 22 (22-30) mmol/L Anion Gap 7 mmol/L BUN 8 (7-17) mg/dL Creatinine 0.60 (0.52-1.04) mg/dL Est GFR (CKD-EPI)AfAm >90 (>60 ml/min/1.73 sqM) Est GFR (CKD-EPI)NonAf >90 (>60 ml/min/1.73 sqM) Glucose 129 H (74-99) mg/dL Calcium 8.5 (8.4-10.2) mg/dL Total Bilirubin 0.5 (0.2-1.3) mg/dL AST 21 (14-36) U/L ALT 22 (4-34) U/L Alkaline Phosphatase 62 (38-126) U/L Troponin I <0.012 (0.000-0.034) ng/mL Total Protein 6.4 (6.3-8.2) g/dL Albumin 3.6 (3.5-5.0) g/dL Amylase <30 L (30-110) U/L Lipase 52 (23-300) U/L Urine Color Urine Appearance (Clear) Urine pH (5.0-8.0) Ur Specific [place] (1.001-1.035) Urine Protein (Negative) Urine Glucose (UA) (Negative) Urine Ketones (Negative) Urine Blood (Negative) Urine Nitrite (Negative) Urine Bilirubin (Negative) Urine Urobilinogen (<2.0) mg/dL Ur Leukocyte Esterase (Negative) Urine RBC (0-5) /hpf Urine WBC (0-5) /hpf Ur Squamous Epith Cells (0-4) /hpf Hyaline Casts (0-2) /lpf Urine Mucus (None) /hpf 10/30/19 Range/Units 02:23 WBC (3.8-10.6) k/uL RBC (3.80-5.40) m/uL Hgb (11.4-16.0) gm/dL Hct (34.0-46.0) % MCV (80.0-100.0) fL MCH (25.0-35.0) pg MCHC (31.0-37.0) g/dL RDW (11.5-15.5) % Plt Count (150-450) k/uL Neutrophils % % Lymphocytes % % Monocytes % % Eosinophils % % Basophils % % Neutrophils # (1.3-7.7) k/uL Lymphocytes # (1.0-4.8) k/uL Monocytes # (0-1.0) k/uL Eosinophils # (0-0.7) k/uL Basophils # (0-0.2) k/uL Sodium (137-145) mmol/L Potassium (3.5-5.1) mmol/L Chloride (98-107) mmol/L Carbon Dioxide (22-30) mmol/L Anion Gap mmol/L BUN (7-17) mg/dL Creatinine (0.52-1.04) mg/dL Est GFR (CKD-EPI)AfAm (>60 ml/min/1.73 sqM) Est GFR (CKD-EPI)NonAf (>60 ml/min/1.73 sqM) Glucose (74-99) mg/dL Calcium (8.4-10.2) mg/dL Total Bilirubin (0.2-1.3) mg/dL AST (14-36) U/L ALT (4-34) U/L Alkaline Phosphatase (38-126) U/L Troponin I (0.000-0.034) ng/mL Total Protein (6.3-8.2) g/dL Albumin (3.5-5.0) g/dL Amylase (30-110) U/L Lipase (23-300) U/L Urine Color Yellow Urine Appearance Clear (Clear) Urine pH 6.5 (5.0-8.0) Ur Specific [place] 1.028 (1.001-1.035) Urine Protein 1+ H (Negative) Urine Glucose (UA) Negative (Negative) Urine Ketones Trace H (Negative) Urine Blood Trace H (Negative) Urine Nitrite Negative (Negative) Urine Bilirubin Negative (Negative) Urine Urobilinogen 2.0 (<2.0) mg/dL Ur Leukocyte Esterase Negative (Negative) Urine RBC 4 (0-5) /hpf Urine WBC 2 (0-5) /hpf Ur Squamous Epith Cells 1 (0-4) /hpf Hyaline Casts 1 (0-2) /lpf Urine Mucus Many H (None) /hpf - EKG Data -: EKG Interpreted by Me EKG shows normal: sinus rhythm (With sinus arrhythmia), axis (Normal), intervals (Normal), QRS complexes (Normal), ST-T waves (Normal) Rate: normal (Rate 60 bpm) Interpretation: normal EKG Disposition Clinical Impression: Abdominal pain Disposition: HOME SELF-CARE Condition: Good Instructions (If sedation given, give patient instructions): Abdominal Pain (ED) Prescriptions: Dicyclomine [Bentyl] 20 mg PO QID #15 tablet Famotidine [Pepcid] 20 mg PO BID #14 tablet Ondansetron Odt [Zofran ODT] 4 mg PO Q8HR PRN #10 tab PRN Reason: Nausea Is patient prescribed a controlled substance at d/c from ED?: No Referrals: Joaquim Nuñez MD [Primary Care Provider] - 1-2 days Juan Daniel Kaplan MD [STAFF PHYSICIAN] - 1-2 days
[2019-10-30] MEDS ORDERED: ONDANSETRON 4 MG/2 ML VIAL IVP STA (01:58)
[2019-10-30] MEDS ORDERED: MORPHINE SULFATE 4 MG/ML SYRINGE IV STA (01:58)
[2019-10-30 02:12] LABS: Basophils % (A) 0 %; Eosinophils # (A) 0.2 k/uL (0-0.7); Eosinophils % (A) 1 %; HCT 43.3 % (34.0-46.0); HGB 14.7 gm/dL (11.4-16.0); Lymphocytes # (A) 2.5 k/uL (1.0-4.8); Lymphocytes % (A) 22 %; MCH 31.6 pg (25.0-35.0); MCHC 34.1 g/dL (31.0-37.0); MCV 92.9 fL (80.0-100.0); Mean Platelet Volume 8.4; Monocytes # (A) 0.5 k/uL (0-1.0); Monocytes % (A) 4 %; Neutrophils % (A) 70 %; Platelet Count 216 k/uL (150-450); RBC 4.66 m/uL (3.80-5.40); RDW 14.1 % (11.5-15.5); WBC 11.3 k/uL (3.8-10.6)
[2019-10-30 02:23] LABS: ALT 22 U/L (4-34); AST 21 U/L (14-36); African American GFR (CKD) >90 (>60 ml/min/1.73 sqM); Albumin 3.6 g/dL (3.5-5.0); Alkaline Phosphatase 62 U/L (38-126); Anion Gap 7 mmol/L; Blood Urea Nitrogen 8 mg/dL (7-17); Calcium 8.5 mg/dL (8.4-10.2); Carbon Dioxide 22 mmol/L (22-30); Chloride 106 mmol/L (98-107); Glucose 129 mg/dL (74-99); Non-African American GFR(CKD) >90 (>60 ml/min/1.73 sqM); Potassium 4.3 mmol/L (3.5-5.1); Sodium 135 mmol/L (137-145); Total Bilirubin 0.5 mg/dL (0.2-1.3); Total Protein 6.4 g/dL (6.3-8.2)
[2019-10-30 02:25] LABS: Amylase <30 U/L (30-110)
[2019-10-30 02:34] LABS: Appearance,Urine Clear (Clear); Bilirubin,Urine Negative (Negative); Blood,Urine Trace (Negative); Color,Urine Yellow; Glucose,Urine (UA) Negative (Negative); Hyaline Casts,Urine 1 /lpf (0-2); Ketones,Urine Trace (Negative); Leukocyte Esterase,Urine Negative (Negative); Mucus,Urine Many /hpf; Nitrite,Urine Negative (Negative); PH, Urine 6.5 (5.0-8.0); Protein,Urine 1+ (Negative); RBC,Urine 4 /hpf (0-5); Specific Gravity,Urine 1.028 (1.001-1.035); Squamous Epithelial Cell,Urine 1 /hpf (0-4); WBC,Urine 2 /hpf (0-5)
[2019-10-30] MEDS ORDERED: MAG HYDROX/AL HYDROX/SIMETH 30 ML, HYOSCYAMINE ELIXIR 10 ML, LIDOCAINE VISCOUS 2% 10 ML PO STA ×3 (02:54)
[2019-10-30] MEDS ORDERED: DICYCLOMINE 20 MG TAB PO STA (03:10)
[2019-10-30 04:13] VITALS: BP 155/78; PULSE 77
== END 2019-10-30 04:05 | disposition home or self-care (01) ==
LOC: EC 01:17
DX: R10.13 Epigastric pain (principal); R10.33 Periumbilical pain; R11.2 Nausea with vomiting, unspecified; R19.7 Diarrhea, unspecified; F17.200 Nicotine dependence, unspecified, uncomplicated; Z90.49 Acquired absence of other specified parts of digestive tract; Z90.710 Acquired absence of both cervix and uterus; Z87.19 Personal history of other diseases of the digestive system
CPT/HCPCS: 36415; 93005; 80053; 82150; 83690; 84484; 85025; 81001; 99284; 96374; 96375; J2270; J2405

== ENCOUNTER 2021-11-03 08:20 | Day surgery (SDC) | payer OTHER ==
[2021-11-01 15:09] VITALS: BMI 31.3
[~2021-11-03 08:20] MED LIST: LACTATED RINGERS 1,000 ML IV SCH; LIDOCAINE 1% (10MG/ML) FOR IV START INTRADERMA PRN
[2021-11-03 08:56] VITALS: TEMP 96.7
[2021-11-03] MEDS ORDERED: PROPOFOL 10 MG/ML 20 ML VIAL IV ONE (09:15)
[2021-11-03] MEDS ORDERED: LIDOCAINE 2% INJ 20 MG/ML (2 ML VIAL) ONE (09:15)
--- NOTE | 2021-11-03 09:26 | P.GSHP ---
History of Present Illness H&P Date: 11/03/21 CHIEF COMPLAINT: GERD and colon screen HISTORY OF PRESENT ILLNESS: The patient is a 51-year-old female who presents with gastroesophageal reflux disease and need for colon screen. Upper and lower endoscopy were offered for further evaluation and management. PAST MEDICAL HISTORY: Please see list. PAST SURGICAL HISTORY: Please see list. MEDICATIONS: Please see list. ALLERGIES: Please see list. SOCIAL HISTORY: No illicit drug use FAMILY HISTORY: No reports of Crohn disease or ulcerative colitis. REVIEW OF ORGAN SYSTEMS: CONSTITUTIONAL: No reports of fevers or chills. GI: Denies any blood in stools or constipation. PHYSICAL EXAM: VITAL SIGNS: Stable GENERAL: Well-developed pleasant in no acute distress. HEENT: No scleral icterus. Extraocular movements grossly intact. Moist buccal mucosa. NECK: Supple without lymphadenopathy. CHEST: Unlabored respirations. Equal bilateral excursions. CARDIOVASCULAR: Regular rate and rhythm. Distal 2+ pulses. ABDOMEN: Soft, nondistended. MUSCULOSKELETAL: No clubbing, cyanosis, or edema. ASSESSMENT: 1. Gastroesophageal reflux disease 2. Colon screen. PLAN: 1. Recommend proceeding with an upper and lower endoscopy Past Medical History Past Medical History: GERD/Reflux Additional Past Medical History / Comment(s): Stomach ulcers. Hx Pancreatitis. History of Any Multi-Drug Resistant Organisms: None Reported Past Surgical History: Cholecystectomy, Hysterectomy, Tonsillectomy Past Anesthesia/Blood Transfusion Reactions: No Reported Reaction, Motion Sickness Additional Past Anesthesia/Blood Transfusion Reaction / Comment(s): Hard to wake up. Past Psychological History: Anxiety Smoking Status: Current every day smoker Past Alcohol Use History: Occasional Additional Past Alcohol Use History / Comment(s): Has smoked for about 20+ yrs, 1/2 to 1 ppd. Past Drug Use History: None Reported Additional Drug Use History / Comment(s): pt smokes half to 1 ppd, drinks socially per pt - Past Family History Mother Family Medical History: No Reported History Medications and Allergies Home Medications Medication Instructions Recorded Confirmed Type Acyclovir 400 mg PO DAILY PRN 01/29/21 11/01/21 History Cholecalciferol [Vitamin D3 (25 50 mcg PO DAILY 01/29/21 11/01/21 History Mcg = 1000 Iu)] Omeprazole 40 mg PO QAM 01/29/21 11/01/21 History Allergies Allergy/AdvReac Type Severity Reaction Status Date / Time famotidine [From Pepcid] AdvReac muscle Verified 11/01/21 14:51 aches Surgical - Exam Vital Signs Temp Pulse Resp BP Pulse Ox 96.7 F L 70 20 149/72 97 11/03/21 08:54 11/03/21 08:54 11/03/21 08:54 11/03/21 08:54 11/03/21 08:54
--- NOTE | 2021-11-03 09:28 | P.PCN ---
Date of Procedure: 11/03/21 Description of Procedure: PREOPERATIVE DIAGNOSIS: Gastroesophageal reflux disease. POSTOPERATIVE DIAGNOSIS: Gastroesophageal reflux disease. Gastritis. OPERATION: Esophagogastroduodenoscopy with biopsies along antrum and duodenum SURGEON: Nita Kenny MD ANESTHESIA: MAC. INDICATIONS: The patient is a 51-year-old female who presents with reflux disease. Benefits and risks of the procedure were described. Informed consent was obtained. DESCRIPTION: The patient was brought into the endoscopy suite and laid in the left lateral decubitus position. An Olympus gastroscope was passed along the posterior oropharynx down to the distal esophagus where the squamocolumnar junction was encountered at 37 cm from the incisors. The stomach was entered and no bile reflux was found. Additional findings are listed below. Biopsies with cold forceps were obtained of the antrum. The first through third portion of the duodenum was examined. Retroflexion of the scope confirmed Hill grade 2 lower esophageal valve. The squamocolumnar junction demonstrated LA grade B erosive esophagitis. The stomach was desufflated. The patient tolerated the procedure well. FINDINGS: Squamocolumnar junction 37 cm from the incisors. Diaphragmatic hiatus at 37 cm. Hill grade 2 lower esophageal valve. LA grade B erosive esophagitis. Cold biopsies obtained of duodenum for celiac disease Chronic gastritis RECOMMENDATIONS: Upper endoscopy as needed.
--- NOTE | 2021-11-03 09:44 | P.PCN ---
Date of Procedure: 11/03/21 Description of Procedure: PREOPERATIVE DIAGNOSIS: Change in bowel habit POSTOPERATIVE DIAGNOSIS: Change in bowel habits with colitis OPERATION: Colonoscopy to the cecum, ileocecal valve and appendiceal orifice. Colonoscopy with random cold forceps biopsies for colitis SURGEON: Nita Kenny MD. ANESTHESIA: MAC. INDICATIONS: The patient is a 51-year-old female who presents with change in bowel habit. Benefits and risks were described and informed consent was obtained. DESCRIPTION OF PROCEDURE: The patient had undergone Sutab prep. The patient had been brought into the operating room and laid in the left lateral decubitus position. After adequate intravenous sedation, the rectum was examined with 2% lidocaine jelly. No external hemorrhoids were encountered. The rectal tone was within normal limits. No lesions were palpated in the rectal vault. An Olympus colonoscope was advanced until the cecum, ileocecal valve and appendiceal orifice were clearly viewed. The prep was good. No scattered diverticulosis was encountered. No colonic polyps were found. Random biopsies cold forceps were obtained for colitis. Retroflexion of the scope demonstrated grade 1 internal hemorrhoids without active bleeding or inflammation. The colon was desufflated. The patient had tolerated the procedure well. Withdrawal time was over 6 minutes. FINDINGS: Aronchick preparation quality scale 2 (1-5) Internal hemorrhoids, grade 1 No external prolapsed hemorrhoids. No arteriovenous malformations. No adenomatous polyps. Random biopsies obtained for colitis RECOMMENDATIONS: Lower endoscopy in 5 2026 Plan - Discharge Summary Discharge Rx Participant: No New Discharge Prescriptions: Continue Acyclovir 400 mg PO DAILY PRN PRN Reason: Cold Sores Cholecalciferol [Vitamin D3 (25 Mcg = 1000 Iu)] 50 mcg PO DAILY Omeprazole 40 mg PO QAM Discharge Medication List Acyclovir 400 mg PO DAILY PRN 01/29/21 [History] Cholecalciferol [Vitamin D3 (25 Mcg = 1000 Iu)] 50 mcg PO DAILY 01/29/21 [Hi story] Omeprazole 40 mg PO QAM 01/29/21 [History] Follow up Appointment(s)/Referral(s): Nita Kenny MD [STAFF PHYSICIAN] - 11/16/21 Patient Instructions/Handouts: *Surgery [facility] - (Anesthesia) Endoscopy Discharge Instructions, Colonoscopy (DC) Activity/Diet/Wound Care/Special Instructions: Repeat colonoscopy in 5 years2025 Discharge Disposition: HOME SELF-CARE
[2021-11-03 09:52] VITALS: RESP 16
[2021-11-03 10:18] VITALS: BP 141/84; PULSE 73
== END 2021-11-03 10:24 | disposition home or self-care (01) ==
LOC: ORWHC2ENDO 08:20
PROVIDERS: ATTEND Surgery Plastic and Reconstructive Surgery
DX: R19.4 Change in bowel habit (principal); K64.0 First degree hemorrhoids; K21.00 Gastro-esophageal reflux disease with esophagitis, without bleeding; K29.50 Unspecified chronic gastritis without bleeding; K21.9 Gastro-esophageal reflux disease without esophagitis; K31.89 Other diseases of stomach and duodenum; Z87.11 Personal history of peptic ulcer disease; Z90.49 Acquired absence of other specified parts of digestive tract
CPT/HCPCS: 45380; 43239; 88305; J2704; J2001

== ENCOUNTER → 2022-05-11 | Outpatient (CLI) | payer OTHER ==
--- NOTE | 2022-05-16 11:15 | MM ---
Reason for Exam: Screening (asymptomatic). Last mammogram was performed 7 year(s) and 11 month(s) ago. Patient History: Menarche at age 14. Left ovary removed at age 49. Right ovary removed at age 49. Hysterectomy at age 49. Risk Values: Clarissa 5 year model risk: 0.7%. NCI Lifetime model risk: 6.5%. Prior Study Comparison: 08/08/2003 Bilateral Screening Mammogram, [facility]. 06/24/2014 Bilateral Screening Mammogram, [facility]. Tissue Density: There are scattered fibroglandular densities. Findings: Analyzed By CAD. There is an ill-defined focal density within the outer anterior right breast. This is persistent on tomographic images. Additional workup is recommended. Diagnostic mammogram and ultrasound can be performed. Chronic nodularities in the posterior right upper outer quadrant. Overall Assessment: Incomplete: need additional imaging evaluation, BI-RAD 0 Management: Diagnostic Mammogram of the right breast. Diagnostic Breast Ultrasound of the right breast. A negative mammogram report should not preclude additional follow up of suspicious palpable abnormalities. Patient should continue monthly self breast exam. A clinical breast exam by your physician is recommended on an annual basis and results should be correlated with mammographic findings. Electronically signed and approved by: Robert Woods D.O. Radiologis
== END | disposition home or self-care (01) ==
LOC: RADMAMWWP 15:46
PROVIDERS: ATTEND Internal Medicine
DX: Z12.31 Encounter for screening mammogram for malignant neoplasm of breast (principal)
CPT/HCPCS: 77063; 77067

== ENCOUNTER → 2022-05-18 | Outpatient (CLI) | payer OTHER ==
--- NOTE | 2022-05-18 11:15 | USB ---
Reason for Exam: Additional evaluation requested from abnormal screening. Patient History: Menarche at age 14. First Full-Term at age 25. Left ovary removed at age 49. Right ovary removed at age 49. Hysterectomy at age 49. Perimenopausal. Patient has history of breast feeding. Risk Values: Clarissa 5 year model risk: 0.9%. NCI Lifetime model risk: 8.0%. Technique: Method: Targeted. Prior Study Comparison: 08/08/2003 Bilateral Screening Mammogram, [facility]. 06/24/2014 Bilateral Screening Mammogram, [facility]. 05/11/2022 Bilateral MG 3D screening mammo w/cad, [facility]. Findings: The upper outer quadrant of the right breast, the axilla of the right breast and the retroareolar of the right breast were scanned. There is a hypoechoic complex area 4 cm the nipple at the 10:00 position. This may correspond to mammographic finding. This measures 0.9 x 0.4 x 1.0 cm. Close follow-up is recommended. Overall Assessment: Probably benign, BI-RAD 3 Management: Diagnostic Breast Ultrasound of the right breast in 3 months. A clinical breast exam by your physician is recommended on an annual basis and results should be correlated with mammographic findings. This exam should not preclude additional follow-up of suspicious palpable abnormalities. Results were given to the patient verbally at the time of exam. Electronically signed and approved by: Robert Woods D.O. Radiologis
--- NOTE | 2022-05-18 18:56 | MM ---
Reason for Exam: Additional evaluation requested from abnormal screening. Last screening mammogram was performed less than 1 month ago. Patient History: Menarche at age 14. First Full-Term at age 25. Left ovary removed at age 49. Right ovary removed at age 49. Hysterectomy at age 49. Perimenopausal. Patient has history of breast feeding. Risk Values: Clarissa 5 year model risk: 0.9%. NCI Lifetime model risk: 8.0%. Prior Study Comparison: 08/08/2003 Bilateral Screening Mammogram, [facility]. 06/24/2014 Bilateral Screening Mammogram, [facility]. 05/11/2022 Bilateral MG 3D screening mammo w/cad, [facility]. Tissue Density: Right: The breast tissue is heterogeneously dense. This may lower the sensitivity of mammography. Findings: Analyzed By CAD. Pattern appears stable. There is persistence of a lobular density within the outer anterior right breast on compression view. Not clearly evident on the mediolateral oblique compression or mediolateral views. Additional workup with ultrasound is recommended. Overall Assessment: Incomplete: need additional imaging evaluation, BI-RAD 0 Management: Diagnostic Breast Ultrasound of the right breast. A clinical breast exam by your physician is recommended on an annual basis and results should be correlated with mammographic findings. This exam should not preclude additional follow-up of suspicious palpable abnormalities. Results were given to the patient verbally at the time of exam. Electronically signed and approved by: Robert Woods D.O. Radiologis
== END | disposition home or self-care (01) ==
LOC: RADMAMWWP 10:20
PROVIDERS: ATTEND Internal Medicine
DX: R92.8 Other abnormal and inconclusive findings on diagnostic imaging of breast (principal); Z90.721 Acquired absence of ovaries, unilateral
CPT/HCPCS: 77065; 76642; G0279; 77061

== ENCOUNTER → 2022-08-31 | Outpatient (CLI) | payer OTHER ==
--- NOTE | 2022-08-31 15:40 | USB ---
Reason for Exam: Follow-up at short interval from prior study. Patient History: Menarche at age 14. First Full-Term at age 25. Left ovary removed at age 49. Right ovary removed at age 49. Hysterectomy at age 49. Perimenopausal. Patient has history of breast feeding. Risk Values: Clarissa 5 year model risk: 0.9%. NCI Lifetime model risk: 8.0%. Prior Study Comparison: 06/24/2014 Bilateral Screening Mammogram, [facility]. 05/11/2022 Bilateral MG 3D screening mammo w/cad, [facility]. 05/18/2022 Right MG 3D work up w/cad RT, [facility]. Findings: The upper outer quadrant of the right breast, the axilla of the right breast and the retroareolar of the right breast were scanned. There is an 8 x 9 x 4 mm oval isoechoic area at 10:00 position 4 cm distance from nipple that appears to blend with tissue on several images is not significantly changed in appearance from prior study. No new suspicious masses are present. Overall Assessment: Benign, BI-RAD 2 Management: Screening Mammogram of both breasts in 9 months. Back on bilateral annual schedule. Results were given to the patient verbally at the time of exam. Electronically signed and approved by: Thomas Hidalgo M.D.
== END | disposition home or self-care (01) ==
LOC: RADUSWWP 14:50
PROVIDERS: ATTEND Internal Medicine
DX: R92.8 Other abnormal and inconclusive findings on diagnostic imaging of breast (principal)

== ENCOUNTER → 2023-06-28 | Outpatient (CLI) | payer OTHER ==
--- NOTE | 2023-06-29 20:58 | MM ---
Reason for Exam: Screening (asymptomatic). Last mammogram was performed 1 year(s) and 1 month(s) ago. Patient History: Menarche at age 14. First Full-Term at age 25. Left ovary removed at age 49. Right ovary removed at age 49. Hysterectomy at age 49. Perimenopausal. Patient has history of breast feeding. Risk Values: Clarissa 5 year model risk: 0.9%. NCI Lifetime model risk: 7.9%. Prior Study Comparison: 06/24/2014 Bilateral Screening Mammogram, [facility]. 05/11/2022 Bilateral MG 3D screening mammo w/cad, [facility]. 05/18/2022 Right MG 3D work up w/cad RT, [facility]. Tissue Density: There are scattered fibroglandular densities. Findings: Analyzed By CAD. There is chronic nodularity on the right. There is no suspicious group of microcalcifications or new suspicious mass in either breast. Overall Assessment: Benign, BI-RAD 2 Management: Screening Mammogram of both breasts in 1 year. . Patient should continue monthly self-breast exams. A clinical breast exam by your physician is recommended on an annual basis. This exam should not preclude additional follow-up of suspicious palpable abnormalities. Note on Clarissa scores and lifetime risk: 1. A Clarissa score greater than 3% is considered moderate risk. If this is the case, consider specialist referral to assess eligibility for a risk reducing agent. 2. If overall lifetime risk for the development of breast cancer is 20% or higher, the patient may qualify for future screening with alternating mammogram and breast MRI. Electronically signed and approved by: Yunior Varela M.D. Radiologist
== END | disposition home or self-care (01) ==
LOC: RADMAMWWP 11:00
PROVIDERS: ATTEND Internal Medicine
DX: Z12.31 Encounter for screening mammogram for malignant neoplasm of breast (principal)
CPT/HCPCS: 77063; 77067

== ENCOUNTER → 2023-08-09 | Outpatient (CLI) | payer OTHER ==
--- NOTE | 2023-08-09 13:00 | CTL ---
EXAMINATION TYPE: CT Low Dose Lung DATE OF EXAM ORDERED: 08/09/2023 HISTORY: . Lung cancer screening CT DLP: 78.[address] CTDI: 2.4 mGy Automated exposure control for dose reduction was used. SCREENING VISIT: COMPARISON: TECHNIQUE: Low dose computed tomography scan was performed through the chest at 1 mm thick sections a nd reconstructed images in multiple planes at 1 mm and [address] DIAGNOSTIC QUALITY: Satisfactory FINDINGS: Mediastinum and Anita: There is no axillary, mediastinal or hilar lymphadenopathy. Pleural and Pericardial spaces: There are no pleural or pericardial effusions. Upper Abdomen: The visualized upper abdomen is unremarkable. Cardiovascular: The thoracic aorta is normal in size. Lung Parenchyma and Airways: Mild centrilobular emphysema. There are some scattered patchy groundglas s areas of opacity seen throughout the lungs bilaterally which is likely inflammatory or infectious. A COVID etiology would be a consideration. Clinical correlation is recommended. Bones: No fracture or aggressive osseous lesion. IMPRESSION: 1. Patchy ground glass areas of opacity throughout the lungs bilaterally could be inflammatory or inf ectious. A COVID etiology would be a possibility. Follow-up examination in 3 months for this is recom mended. Additional follow-up findings for screening below. Clinical correlation is recommended. 2. Mild emphysema. 3. No significant pulmonary nodules. CT LUNG RAD AND CT CHEST RECOMMENDATION: Lung-Rad 1 Negative: Continue annual screening with LDCT in 12 months.
== END | disposition home or self-care (01) ==
LOC: RADCTMAIN 11:53
PROVIDERS: ATTEND Internal Medicine
DX: Z12.2 Encounter for screening for malignant neoplasm of respiratory organs (principal); J43.2 Centrilobular emphysema; R91.8 Other nonspecific abnormal finding of lung field; F17.210 Nicotine dependence, cigarettes, uncomplicated
CPT/HCPCS: 71271

== ENCOUNTER → 2023-11-22 | Outpatient (CLI) | payer OTHER ==
--- NOTE | 2023-11-22 13:51 | CTL ---
EXAMINATION TYPE: CT Low Dose Lung DATE OF EXAM ORDERED: 11/22/2023 HISTORY: 53-year-old female R93.9, current smoker with 30 pack-year history. Lung cancer screening CT DLP: 134.[address] CTDI: 4.0 mGy Automated exposure control for dose reduction was used. SCREENING VISIT: Three-month follow-up COMPARISON: 08/09/2023 TECHNIQUE: Low dose computed tomography scan was performed through the chest at 1 mm thick sections a nd reconstructed images in multiple planes at 1 mm and [address] DIAGNOSTIC QUALITY: Satisfactory FINDINGS: Heart normal size without pericardial effusion. Aorta normal caliber with bovine configuration to the aortic arch. No thoracic lymphadenopathy by CT size criteria. Mild diffuse bronchial wall thickening. Minimal emphysematous change. 3 mm pulmonary nodule posterior left upper lobe, axial image 32 is unchanged. No consolidation or ple ural effusion. The previous bilateral upper lobe peribronchovascular groundglass opacities have resol mariama. Visualized upper abdomen shows mild thickening of the left adrenal gland without discrete nodularity. Bones: No osseous destructive process. IMPRESSION: 1. LungRADS 2, benign. Stable tiny 3 mm pulmonary nodule left upper lobe. 2. COPD with mild emphysema. Recommend smoking cessation. 3. The previous peribronchovascular groundglass of the bilateral upper lobes has resolved over the co urse of 3 months. Findings suggest resolution of previous infectious/inflammatory process. CT LUNG RAD AND CT CHEST RECOMMENDATION: Lung-Rad 2 Benign Appearance or Behavior: Continue annual sc reening with LDCT in 12 months. S Modifier (other clinically significant findings): None
== END | disposition home or self-care (01) ==
LOC: RADCTMAIN 12:06
PROVIDERS: ATTEND Internal Medicine
DX: R93.89 Abnormal findings on diagnostic imaging of other specified body structures (principal); R91.1 Solitary pulmonary nodule; J43.9 Emphysema, unspecified
CPT/HCPCS: 71271